=== PATIENT | female | born 1965 | race Caucasian/White ===

== ENCOUNTER 2019-03-19 09:40 | Emergency (ER) | payer MEDICAID, OTHER ==
--- NOTE | 2019-03-19 10:22 | RAD ---
EXAM: Chest PA and lateral: HISTORY: Cough COMPARISON: 08/08/2014 FINDINGS: Left-sided transvenous defibrillator with lead positioned over the right atrium, right ventricle and presumably the coronary sinus. Heart: Markedly enlarged cardiac silhouette. Aorta: Unremarkable Pulmonary vessels: Normal Costophrenic angles: Costophrenic angles are clear. Lungs: No consolidation or masses. Chronic interstitial opacities. Pneumothorax: No pneumothorax Osseous structures: No osseous abnormalities IMPRESSION: Markedly cardiomegaly. No evidence of congestive heart failure.
[2019-03-19] MEDS ORDERED: Dexamethasone 10 MG/ML VIAL ONE (10:45)
== END 2019-03-19 11:17 | disposition home or self-care (01) ==
LOC: ERS 09:40
DX: J06.9 Acute upper respiratory infection, unspecified (principal); I50.9 Heart failure, unspecified; F17.210 Nicotine dependence, cigarettes, uncomplicated
CPT/HCPCS: 71046; 94640; J1100

== ENCOUNTER 2019-07-14 00:47 | Observation (INO) | payer OTHER ==
[2019-07-14 03:03] LABS: Hemoglobin 15.3 g/dL (12.0-16.0); Mean Corpuscular HGB CONC 33.7 g/dL (32.0-36.0); Mean Corpuscular Hemoglobin 31.8 pg (27.0-31.0); Mean Corpuscular Volume 94.3 fL (78.0-98.0); RBC Distribution Width 14.3 % (11.5-14.5)
[2019-07-14 03:18] LABS: #Basophils 0.1 thou/uL (0.0-0.2); #Eosinphils 0.1 thou/uL (0.0-0.7); #Lymphocytes 1.7 thou/uL (1.20-3.40); #Monocytes 0.7 thou/uL (0.11-0.59); #Neutrophils 7.4 thou/uL (1.40-6.50); %Basophils 0.5 % (0.0-1.0); %Lymphocytes 17.2 % (21.0-51.0); %Monocytes 7.2 % (0.0-10.0); %Neutrophils 74.1 % (42.0-75.0); Mean Platelet Volume 8.2 fL (7.4-10.4); Platelet Count 112 thou/uL (130-400); Platelet Morphology Comment Appears Decreased
[2019-07-14 03:19] LABS: ALT (SGPT) 41 U/L (8-55); AST (SGOT) 30 U/L (5-34); Albumin 3.7 g/dL (3.5-5.0); Alkaline Phosphatase 117 U/L (40-110); Anion Gap 16 mmol/L (10-20); BUN (Urea Nitrogen) 30 mg/dL (9.8-20.1); Bilirubin, Total 2.6 mg/dL (0.2-1.2); CK (CPK) 72 U/L (29-168); Calc. Creatinine Clearance 0 mL/min (70-130); Calcium 9.2 mg/dL (7.8-10.44); Carbon Dioxide 26 mmol/L (22-29); Chloride 94 mmol/L (98-107); Estimated GFR-MDRD 62; Glucose 114 mg/dL (70-105); Potassium 3.8 mmol/L (3.5-5.1); Protein, Total 6.7 g/dL (6.0-8.3); Sodium 132 mmol/L (136-145)
[2019-07-14 04:24] LABS: CKMB 2.7 ng/mL (0-6.6)
[2019-07-14 04:32] LABS: Bilirubin Negative (Negative); Blood, Urine Negative (Negative); Clarity Clear (Clear); Glucose, Urine (Dipstick) Normal (Negative); Leukocyte Negative Leu/uL (Negative); Nitrite Negative (Negative); Protein, Urine (Dipstick) 70 mg/dL (Neg-Trace); Squamous Epithelial 0-3 HPF (0-3); Urobilinogen 6 mg/dL (Less than 2); WBC/HPF 0-3 HPF (0-3)
[2019-07-14 04:47] LABS: Bacteria/HPF 1+ HPF (None Seen); RBC/HPF 0-3 HPF (0-3)
[2019-07-14] MEDS ORDERED: Benzonatate 100 MG CAP ONE (07:01)
[2019-07-14] MEDS ORDERED: Furosemide 40 MG/4 ML VIAL ONE (07:09)
--- NOTE | 2019-07-14 08:16 | RAD ---
TWO VIEWS CHEST: COMPARISON: 03/19/2019. HISTORY: Dry cough for 2 weeks. FINDINGS: Two views of the chest show an enlarged but stable cardiomediastinal silhouette. There is a pacemake r that is unchanged in position. There is no evidence of consolidation, mass, or pleural effusion. IMPRESSION: Cardiomegaly without evidence of acute cardiopulmonary disease. POS: [facility]
[2019-07-14] MEDS ORDERED: Ondansetron PF 4 MG/2 ML Vial IVP PRN (08:24)
[2019-07-14] MEDS ORDERED: Acetaminophen 325 MG TAB PO PRN (08:24)
[2019-07-14] MEDS ORDERED: Acetaminophen 650 MG Suppository PR PRN (08:24)
[2019-07-14] MEDS ORDERED: Albuterol Sulfate 2.5 mg/3 ml Neb NEB PRN (08:24)
[2019-07-14] MEDS ORDERED: Ondansetron ODT 4 MG TAB PO PRN (08:24)
--- NOTE | 2019-07-14 08:37 | PDOC.FPRHP ---
- History of Present Illness Chief Complaint: coughx2 weeks History of Present Illness: Ms. Watters is a 54 yo F with a pmhx sig for dilated cardiomyopathy resulting in HFrEF and COPD she has been having a cough, decreased appetite, and weight loss for the past two-three weeks. she has been taking her medications as prescribed and denies any current drug use. she reports difficulty lying flat 2/2 cough. she denies any LE edema, dyspnea, chest pain, syncope, or defib discharges. she continues to smoke and take her inhalers as prescribed. she denies any fever, chills, night sweats, wheezing, or increased mucous production. she was last seen/ received an echo/LHC in our hospital in 2014 that revealed an EF of 10-15% and no sig coronary blockage. she has been following with a potash flaker at [facility] and thinks her last echo was over a year ago, unable to remember cardiologists name or many other details ED Course: benji horn - Allergies/Adverse Reactions Allergies Allergy/AdvReac Type Severity Reaction Status Date / Time No Known Allergies Allergy Verified 08/08/14 23:20 - Home Medications Medication Instructions Recorded Confirmed Type ALButerol Sulfate [Ventolin Neb] 07/14/19 History Albuterol Sulfate [Proair HFA] 07/14/19 History BuPROPion SR [Wellbutrin SR] 150 mg PO DAILY 07/14/19 History Budesonide-Formoterol [Symbicort 1 puff INH BID 07/14/19 History 160-4.5] Carvedilol mg PO BID 07/14/19 History Digoxin [Lanoxin] mg PO DAILY 07/14/19 History Lisinopril mg PO DAILY 07/14/19 History Metolazone [Zaroxolyn] mg PO DAILY 07/14/19 History Sertraline HCl mg PO DAILY 07/14/19 History - History PMHx:COPD, HFrEF PSHx: CS, AICD placement FHx:NC Social:reports 1/2 day, hx of polysubstance abuse - Review of Systems General: reports: weight/appetite/sleep changes. denies: fever/chills Eyes: denies: vision changes Respiratory: reports: cough, shortness of breath. denies: congestion Cardiovascular: denies: chest pain, palpitation, edema Gastrointestinal: denies: nausea, vomiting, diarrhea Genitourinary: denies: dysuria Skin: denies: rashes, lesions Musculoskeletal: denies: pain, tenderness Neurological: denies: numbness, syncope, seizure - Vital signs 112/74, Pulse: 112, Resp: 20, Temp: 98.0 (Oral), Pain: 7, O2 sat: 98 on (Room Air - Physical Exam Constitutional: NAD, awake, alert and oriented HEENT: normocephalic and atraumatic Neck: trachea midline, no JVD Chest: no-tender to palpation Heart: RRR, no murmurs/rubs/gallops, pulses present Lungs: no respiratory distress, no rales/rhonchi, no wheezing -Lungs: decreased bs b/l Abdomen: soft, no masses/distention Musculoskeletal: normal structure, normal tone Neurological: no focal deficit, CN II-XII intact Skin: no rash/lesions Heme/Lymphatic: no unusual bruising or bleeding FMR H&P: Results - Labs Result Diagrams: 07/14/19 02:53 07/14/19 02:53 Lab results: WBC 10.0 thou/uL (4.8-10.8) 07/14/19 02:53 Hgb 15.3 g/dL (12.0-16.0) 07/14/19 02:53 Hct 45.2 % (36.0-47.0) 07/14/19 02:53 MCV 94.3 fL (78.0-98.0) 07/14/19 02:53 Plt Count 112 thou/uL (130-400) L 07/14/19 02:53 Neutrophils % 74.1 % (42.0-75.0) 07/14/19 02:53 Sodium 132 mmol/L (136-145) L 07/14/19 02:53 Potassium 3.8 mmol/L (3.5-5.1) 07/14/19 02:53 Chloride 94 mmol/L (98-107) L 07/14/19 02:53 Carbon Dioxide 26 mmol/L (22-29) 07/14/19 02:53 BUN 30 mg/dL (9.8-20.1) H 07/14/19 02:53 Creatinine 0.94 mg/dL (0.6-1.1) 07/14/19 02:53 Glucose 114 mg/dL (70-105) H 07/14/19 02:53 Calcium 9.2 mg/dL (7.8-10.44) 07/14/19 02:53 Total Bilirubin 2.6 mg/dL (0.2-1.2) H 07/14/19 02:53 AST 30 U/L (5-34) 07/14/19 02:53 ALT 41 U/L (8-55) 07/14/19 02:53 Alkaline Phosphatase 117 U/L (40-110) H 07/14/19 02:53 Creatine Kinase 72 U/L (29-168) 07/14/19 02:53 CK-MB (CK-2) 2.7 ng/mL (0-6.6) 07/14/19 02:53 B-Natriuretic Peptide 3927.3 pg/mL (0-100) H 07/14/19 02:53 Serum Total Protein 6.7 g/dL (6.0-8.3) 07/14/19 02:53 Albumin 3.7 g/dL (3.5-5.0) 07/14/19 02:53 Urine Ketones Negative mg/dL (Negative) 07/14/19 04:15 Urine Blood Negative (Negative) 07/14/19 04:15 Urine Nitrite Negative (Negative) 07/14/19 04:15 Ur Leukocyte Esterase Negative Adamaris/uL (Negative) 07/14/19 04:15 Urine RBC 0-3 HPF (0-3) 07/14/19 04:15 Urine WBC 0-3 HPF (0-3) 07/14/19 04:15 Ur Squamous Epith Cells 0-3 HPF (0-3) 07/14/19 04:15 Urine Bacteria 1+ HPF (None Seen) A 07/14/19 04:15 FMR H&P: A/P - Problem List (1) HFrEF (heart failure with reduced ejection fraction) Current Visit: Yes Status: Acute Code(s): I50.20 - UNSPECIFIED SYSTOLIC ( CONGESTIVE) HEART FAILURE (2) COPD exacerbation Current Visit: Yes Status: Acute Code(s): J44.1 - CHRONIC OBSTRUCTIVE PULMONARY DISEASE W (ACUTE) EXACERBATION (3) NSTEMI (non-ST elevated myocardial infarction) Current Visit: Yes Status: Acute Code(s): I21.4 - NON-ST ELEVATION (NSTEMI) MYOCARDIAL INFARCTION (4) Hyperbilirubinemia Current Visit: Yes Status: Acute Code(s): E80.6 - OTHER DISORDERS OF BILIRUBIN METABOLISM (5) Tobacco abuse Current Visit: Yes Status: Acute Code(s): Z72.0 - TOBACCO USE (6) Polysubstance abuse Current Visit: Yes Status: Acute Code(s): F19.10 - OTHER PSYCHOACTIVE SUBSTANCE ABUSE, UNCOMPLICATED - Plan COPD exacerbation, most likely - hyperinflated lungs on cxr, cough, decreased breath sounds - prednisone, nebs - further eval for infectious cause with procal, consider TB screen - continue home meds HFrEF exacerbation, possible - elevated BNP, no fluid/vascular congestion seen on cxr, no edema - elevated bnp/trop/bili likely chronic from severe dilated cardiomyopathy - obtain echo, monitor fluid status, consider additional lasix - continue home meds NSTEMI II - elevated troponin, likely related to above - trendx3 Hyperbilirubinemia - likely related to hepatic congestion 2/2 above - monitor CMP tobacco abuse - encourage cessation polysubstance abuse - uds pending code: full dispo: tele obs for further eval/treatment FMR H&P: Upper Level - Plan Date/Time: 07/14/19 0832 I, [], have evaluated this patient and agree with findings/plan as outlined by engineer intern resident. Pertinent changes/additions are listed here. Addendum - Attending - Attending Attestation Date/Time: 07/14/19 1104 I personally evaluated the patient and discussed the management with Dr. Verduzco I agree with the History, Examination, Assessment and Plan documented above with any addition or exceptions noted below. 54 yo female with known non-ischemic cardiomyopathy HFrEF (EF 10-15 %)s/p ACID. Patient c/o 3 weeks non productive cough questionable orthopnea, she denies associated fever or chills. Patient to ER recently at [facility] records unavailable. Patient with Heart Cath Lindsay 2014 nonremarkable Coronary arteries with dilated cardiomyopathy felt due most likely to illicit drug use. Patient smoker until recent worsening symptoms. Lab notable for elevated BNP and OJ noted. PE patient mildly cachetic appears older than stated age with no avert clinical feature c/w fluid overload lung coarse BS no rales no diminished BS at bases suggestive of pleural effusion. Heart with heart rate 110s at present. Abdomen soft BS positive no guarding rebound extremities no c/c/e A/P COPD acute exacerbation r/o component of decompensation Severe non ischemic cardiomyopathy HFrEF s/p AICD r/o component of diastolic HF as well will admit withhold antibiotic for now rec steroids scheduled nebulizer treatment and trend troponins. Would recommend echocardiogram and otherwise continue home rx diuresis prn.
--- NOTE | 2019-07-14 09:04 | CT ---
PRELIMINARY REPORT/[facility]/EMERGENCY AFTER HOURS PROCEDURE: EXAM: CTA Chest with Intravenous Contrast CLINICAL HISTORY: DYSPNEA TECHNIQUE: Axial CTA images of the chest with intravenous contrast. MIP reconstructed images were created and re viewed. CONTRAST: With; ISOVUE 370,100mL COMPARISON: None provided. FINDINGS: PULMONARY ARTERIES No intraluminal filling defect suspicious for PE. AORTA No thoracic aortic aneurysm or dissection. LUNGS Diffuse emphysematous changes bilaterally. There is a 1.4 cm spiculated nodule at the medial l eft upper lobe are not seen on image 19 of series 3. Irregular pleural thickening is seen at the pos terior right lung apex. There is irregular pleural thickening of the mid/ inferior left major fissur e. Calcified granulomas within the medial left lung. PLEURAL SPACES No pleural effusion. No pneumothorax. HEART AND MEDIASTINUM Massive cardiomegaly. Small pericardial effusion. Left chest pacer with leads in place. Reflux of contrast into the IVC and hepatic veins. Mediastinal/bilateral hilar vivien kait cifications. Small amount of heterogeneous soft tissue attenuation within the anterior mediastinum r elated to residual thymus versus thymic hyperplasia. LYMPH NODES No lymphadenopathy. BONES No acute fracture. Degenerative changes of the thoracic spine. CHEST WALL AND UPPER ABDOMEN Images through the upper abdomen are unremarkable. The chest wall is unr emarkable. IMPRESSION: 1. No pulmonary embolism. 2. There is a 1.4 cm spiculated nodule at the medial left upper lobe, with irregular pleural thicken ing at the right lung apex and at the mid/inferior left major fissure. These findings are concerning for malignancy, however may alternatively be related to chronic change or infectious or inflammatory process. Recommend comparison with any prior imaging if available. Recommend Pulmonology consult. 3. Massive cardiomegaly with small pericardial effusion. Reflux of contrast into the IVC and hepati c veins may be related to right heart dysfunction. ELECTRONICALLY SIGNED BY: Luciano Mckeon MD Jul 14, 2019 5:59:50 AM SHEET WRITER This report is intended for review by the ordering physician only, in accordance of law. If you recei ve this report in error, please call [facility] at [phone]. FINAL REPORT EMERGENT AFTER HOURS CTA OF THE CHEST WITH CONTRAST: FINDINGS/IMPRESSION: I agree with the findings and impression given in the preliminary report per [facility] physici an. 1. No evidence of pulmonary thromboembolism. 2. Cardiomegaly with severe enlargement of the left lateral ventricle. Contrast is still seen in th e right heart extending down the inferior vena cava suggesting right heart dysfunction. POS: [facility]
[2019-07-14] MEDS ORDERED: guaiFENesin 100 MG/5 ML UDCUP PO PRN (09:45)
[2019-07-14 10:11] LABS: Amphetamine Not Detected (NotDetected); Cocaine Metabolite Screen Not Detected (NotDetected); Medtox Reader # READER 1; Methamphetamine Detected (NotDetected); Opiate Screen Not Detected (NotDetected); Phencyclidine (PCP) Not Detected (NotDetected); THC/Cannabinoid Screen Detected (NotDetected)
[2019-07-14 10:12] LABS: Barbiturates Screen Not Detected (NotDetected); Benzodiazepine Screen Detected (NotDetected); Medtox Control Line Valid? VALID (VALID); Methadone Not Detected (NotDetected); Oxycodone Screen Not Detected (NotDetected); Tricyclic Screen Not Detected (NotDetected)
[2019-07-14 11:22] LABS: Troponin I 0.046 ng/mL (< 0.028)
[2019-07-14] MEDS: predniSONE 20 MG TAB PO SCH (12:45)
[2019-07-14] MEDS: Diabetic Tussin 200 MG/10 ML UDCUP PO PRN ×2 (12:45→20:52)
[2019-07-14] MEDS ORDERED: Iopamidol 370 76% 100 ML VIAL ONE (13:47)
[2019-07-15] MEDS: Diabetic Tussin 200 MG/10 ML UDCUP PO PRN (00:59)
[2019-07-15 05:12] LABS: ALT (SGPT) 36 U/L (8-55); AST (SGOT) 25 U/L (5-34); Albumin 3.5 g/dL (3.5-5.0); Alkaline Phosphatase 125 U/L (40-110); Anion Gap 16 mmol/L (10-20); BUN (Urea Nitrogen) 33 mg/dL (9.8-20.1); Bilirubin, Total 1.6 mg/dL (0.2-1.2); Calc. Creatinine Clearance 67 mL/min (70-130); Calcium 9.2 mg/dL (7.8-10.44); Carbon Dioxide 27 mmol/L (22-29); Chloride 93 mmol/L (98-107); Estimated GFR-MDRD 65; Globulin 2.9 g/dL (2.4-3.5); Glucose 166 mg/dL (70-105); Magnesium 1.8 mg/dL (1.6-2.6); Potassium 3.4 mmol/L (3.5-5.1); Protein, Total 6.4 g/dL (6.0-8.3); Sodium 133 mmol/L (136-145)
[2019-07-15 06:37] LABS: Band 8 % (5-11); Hemoglobin 14.5 g/dL (12.0-16.0); Lymphocytes 8 % (21-51); MDiff Complete? YES; Mean Platelet Volume 9.1 fL (7.4-10.4); Monocytes 3 % (0-10); Neutrophil 81 % (42-75); Platelet Count 125 thou/uL (130-400); RBC Distribution Width 14.3 % (11.5-14.5); Red Blood Cell (RBC) Count 4.67 mill/uL (4.20-5.40); White Blood Cell (WBC) Count 8.6 thou/uL (4.8-10.8)
--- NOTE | 2019-07-15 07:09 | PDOC.FM ---
- Subjective Subjective: pt reports feeling much better today, still has cough, but denies dyspnea or chest pain - Objective Vital Signs & Weight: Vital Signs (12 hours) Temp Pulse Resp BP Pulse Ox 07/15/19 03:01 98.3 F 103 H 18 105/68 95 07/14/19 23:20 95 16 96 07/14/19 23:15 97.4 F L 106 H 18 126/82 92 L 07/14/19 20:00 97.4 F L 94 14 109/75 93 L 07/14/19 19:26 90 16 97 Weight Weight 58.377 kg I&O: 07/14/19 07/15/19 07/16/19 06:59 06:59 06:59 Intake Total 804 Output Total 1300 Balance -496 Result Diagrams: 07/15/19 04:35 07/15/19 04:35 Phys Exam - Physical Examination Constitutional: NAD HEENT: moist MMs Neck: no JVD Respiratory: clear to auscultation bilateral Cardiovascular: RRR, no significant murmur Gastrointestinal: soft Musculoskeletal: pulses present Neurological: moves all 4 limbs Psychiatric: normal affect Skin: no rash Dx/Plan (1) HFrEF (heart failure with reduced ejection fraction) Code(s): I50.20 - UNSPECIFIED SYSTOLIC (CONGESTIVE) HEART FAILURE Status: Acute (2) COPD exacerbation Code(s): J44.1 - CHRONIC OBSTRUCTIVE PULMONARY DISEASE W (ACUTE) EXACERBATION Status: Acute (3) NSTEMI (non-ST elevated myocardial infarction) Code(s): I21.4 - NON-ST ELEVATION (NSTEMI) MYOCARDIAL INFARCTION Status: Acute (4) Hyperbilirubinemia Code(s): E80.6 - OTHER DISORDERS OF BILIRUBIN METABOLISM Status: Acute (5) Tobacco abuse Code(s): Z72.0 - TOBACCO USE Status: Acute (6) Polysubstance abuse Code(s): F19.10 - OTHER PSYCHOACTIVE SUBSTANCE ABUSE, UNCOMPLICATED Status: Acute - Plan Plan: COPD exacerbation, most likely - hyperinflated lungs on cxr, cough, decreased breath sounds - prednisone, nebs - continue home meds HFrEF exacerbation, possible - elevated BNP, no fluid/vascular congestion seen on cxr, no edema - elevated bnp/trop/bili likely chronic from severe dilated cardiomyopathy - echo similar to previous - continue home meds NSTEMI II - elevated troponin, likely related to above - downtrended Hyperbilirubinemia - likely related to hepatic congestion 2/2 above - monitor CMP tobacco abuse - encourage cessation polysubstance abuse - uds + code: full dispo: DC today with pulm fu outpt Addendum - Attending - Attending Attestation Date/Time: 07/15/19 6199 I personally evaluated the patient and discussed the management with Dr. Verduzco I agree with the History, Examination, Assessment and Plan documented above with any addition or exceptions noted below. Patient stable for dismissal candid discussion regards need tobacco cessation and importance of f/u pulmonary nodule /mass with Pulmonary as outpatient.
[2019-07-15] MEDS: predniSONE 20 MG TAB PO SCH (08:30)
[2019-07-15] MEDS ORDERED: Lisinopril 2.5 MG TAB PO SCH (09:00)
[2019-07-15] MEDS ORDERED: Enoxaparin Sodium 40 MG/0.4 ML SYRINGE SC SCH (09:00)
[2019-07-15] MEDS ORDERED: Digoxin 0.125 MG TAB PO SCH (09:00)
[2019-07-15] MEDS ORDERED: Carvedilol 3.125 MG TAB PO SCH (09:00)
[2019-07-15] MEDS ORDERED: Albuterol Sulfate 2.5 mg/3 ml Neb NEB PRN (10:15)
[2019-07-15] MEDS ORDERED: PROVENTIL INHALER 6.7 G (200 INHALATIONS) INH PRN (10:15)
[2019-07-15 12:02] VITALS: TEMP 97.5
[2019-07-15] MEDS ORDERED: Furosemide 20 MG TAB PO SCH (14:00)
[2019-07-15 14:08] VITALS: BP 102/63
[2019-07-15 14:16] VITALS: BMI 21.4
[2019-07-15] MEDS ORDERED: Spironolactone 25 MG TAB PO SCH (17:00)
[2019-07-15] MEDS ORDERED: Mometasone/Formoterol 120 PUFF INHALER INH SCH (18:30)
--- NOTE | 2019-07-16 11:27 | DIS ---
DATE OF ADMISSION: 07/14/2019 DATE OF DISCHARGE: 07/15/2019 ADMITTING ATTENDING: Germán Gamez MD DISCHARGE ATTENDING: Germán Gamez MD CONSULTATIONS: None. PROCEDURES: None. IMAGING: Chest x-ray reviewed. No acute abnormalities. Chest thorax CTA revealed no acute abnormalities. Echocardiogram significant for ejection fraction, visually estimated at 10% to 15%, which is unchanged from an ejection fraction 5 years ago. DISCHARGE MEDICATIONS: 1. Sertraline 50 mg p.o. daily. 2. Metolazone 2.5 mg p.o. daily. 3. Lisinopril 2.5 mg p.o. daily. 4. Digoxin 0.125 mg p.o. daily. 5. Coreg 3.125 mg p.o. b.i.d. 6. Symbicort one puff inhaled b.i.d. 7. Wellbutrin 150 mg p.o. b.i.d. 8. ProAir two puffs inhaled q.4 hours p.r.n. 9. Ventolin 1 vial nebulized q.6 hours p.r.n. 10. Spironolactone 12.5 mg p.o. b.i.d. 11. Spiriva 18 mcg inhaled daily. 12. Furosemide 20 mg p.o. at 0900 and 1400. 13. Prednisone 40 mg p.o. daily. DISCHARGE DIAGNOSES: Primary Diagnosis: Chronic obstructive pulmonary disease exacerbation. Secondary Diagnoses: 1. Heart failure with reduced ejection fraction exacerbation, mild. 2. Ugn-VF-dazscnfmr myocardial infarction type 2. 3. Hyperbilirubinemia. 4. Tobacco abuse. 5. Polysubstance abuse. HISTORY OF PRESENT ILLNESS/HOSPITAL COURSE: Ms. Watters is a 54-year-old female with past medical history significant for severely dilated cardiomyopathy resulting in heart failure and diagnosis of COPD. She reports having a cough, decreased appetite and weight loss in the past 2 to 3 weeks. Taking her meds as prescribed and not drinking any more water. She reports the cough all the time and not changing when lying flat or sitting up. She denies any chest pain, syncope, discharge from her defibrillator that time. She continues to smoke. In the emergency room, she was given Neb and Lasix and admitted to the hospital floor for exacerbation. The patient's BNP is in the 3000 which is her baseline. Chest x-ray and physical exam findings suggest a diagnosis of acute exacerbation. Echocardiogram . The patient COPD exacerbation and possibly having side effects from her drug abuse, she did test positive . The patient quickly improved and was deemed stable for discharge to home today. Of note, the patient did have a CTA done DISCHARGE INSTRUCTIONS: LOCATION: Home. DIET: Heart healthy low-sodium, fluid restriction. ACTIVITY: As tolerated. FOLLOWUP: Follow up with PCP and architectural sales consultant as soon as possible. Job ID: [id number]
== END 2019-07-15 14:30 | disposition home or self-care (01) ==
LOC: ERS 00:47 → 2SW 07:36
PROVIDERS: ADMIT Family Medicine; ATTEND Family Medicine
DX: J44.1 Chronic obstructive pulmonary disease with (acute) exacerbation (principal); I42.0 Dilated cardiomyopathy; I50.20 Unspecified systolic (congestive) heart failure; F17.210 Nicotine dependence, cigarettes, uncomplicated; E80.6 Other disorders of bilirubin metabolism; F19.10 Other psychoactive substance abuse, uncomplicated; I21.A1 Myocardial infarction type 2; R91.1 Solitary pulmonary nodule; Z79.51 Long term (current) use of inhaled steroids; Z79.899 Other long term (current) drug therapy; Z95.810 Presence of automatic (implantable) cardiac defibrillator
CPT/HCPCS: 36415; 71046; 71275; 80053; 80306; 81003; 81015; 82550; 82553; 83735; 83880; 84145; 84443; 84484; 85007; 85025; 85027; 93005; 93306; 93798; 94640; 96374; G0378; J1650; J1940; J7512; J7620; Q9967

== ENCOUNTER 2019-07-23 11:08 | Inpatient (IN) | payer OTHER ==
[2019-07-23 11:54] LABS: #Eosinphils 0.1 thou/uL (0.0-0.7); #Lymphocytes 1.5 thou/uL (1.20-3.40); #Monocytes 0.8 thou/uL (0.11-0.59); %Basophils 0.4 % (0.0-1.0); %Eosinophils 0.8 % (0.0-10.0); %Lymphocytes 14.2 % (21.0-51.0); %Monocytes 7.7 % (0.0-10.0); %Neutrophils 76.8 % (42.0-75.0); Hemoglobin 15.5 g/dL (12.0-16.0); Mean Corpuscular HGB CONC 31.4 g/dL (32.0-36.0); Mean Corpuscular Volume 95.7 fL (78.0-98.0); Mean Platelet Volume 8.7 fL (7.4-10.4); Platelet Count 173 thou/uL (130-400); RBC Distribution Width 14.6 % (11.5-14.5); Red Blood Cell (RBC) Count 5.16 mill/uL (4.20-5.40); White Blood Cell (WBC) Count 10.4 thou/uL (4.8-10.8)
--- NOTE | 2019-07-23 12:20 | RAD ---
SINGLE VIEW CHEST: Date: 07/23/2019 COMPARISON: 08/08/14. HISTORY: Shortness of breath for 2-3 days. FINDINGS: Single view of the chest shows an enlarged cardiomediastinal silhouette. There is a pacemaker with it s leads in the right atrium, right ventricle, and coronary sinus. There is no evidence of consolidati on, mass, or pleural effusion. IMPRESSION: Cardiomegaly. POS: [facility]
[2019-07-23 12:38] LABS: CKMB 4.3 ng/mL (0-6.6)
[2019-07-23 12:55] LABS: Albumin 3.7 g/dL (3.5-5.0)
[2019-07-23 12:56] LABS: Chloride 89 mmol/L (98-107); Sodium 131 mmol/L (136-145)
[2019-07-23 12:57] LABS: Calcium 9.4 mg/dL (7.8-10.44); Glucose 90 mg/dL (70-105)
[2019-07-23 12:58] LABS: Globulin 2.9 g/dL (2.4-3.5); Protein, Total 6.6 g/dL (6.0-8.3)
[2019-07-23 12:59] LABS: Anion Gap 12 mmol/L (10-20); Bilirubin, Total 1.6 mg/dL (0.2-1.2); Carbon Dioxide 34 mmol/L (22-29)
[2019-07-23 13:00] LABS: Alkaline Phosphatase 120 U/L (40-110)
[2019-07-23 13:01] LABS: Calc. Creatinine Clearance 0 mL/min (70-130); Estimated GFR-MDRD 58
[2019-07-23 13:02] LABS: BUN (Urea Nitrogen) 35 mg/dL (9.8-20.1)
[2019-07-23 13:03] LABS: ALT (SGPT) 116 U/L (8-55); AST (SGOT) 54 U/L (5-34)
[2019-07-23] MEDS ORDERED: Heparin 1,000 UNITS/ML VIAL ONE (15:37)
--- NOTE | 2019-07-23 16:30 | PDOC.FPRHP ---
- History of Present Illness Chief Complaint: Abd pain, SOB, Increasing ALMAZAN History of Present Illness: 54 yo F w/ PMH of severe HFrEF, COPD, drug abuse, HTN, HLD presents for increasing ALMAZAN, sob, abdominal pain, decreased appetite. Pt reports symptoms have been present since she was recently discahrged from hospital. Pt reports she has been taking her home inhalers without relief. She has not had any increasing edema. She reports some exertional chest discomfort that is uncahnged from baseline. Denies fever, chills. Reports abd pain with increasing nausea and epigastric pain that is worse with meals. Labwork in ED showed BNP mildly elevated from baseline and troponin leak consistent with prior values. ED Course: Albuterol X1 - Allergies/Adverse Reactions Allergies Allergy/AdvReac Type Severity Reaction Status Date / Time No Known Allergies Allergy Verified 08/08/14 23:20 - Home Medications Medication Instructions Recorded Confirmed Type ALButerol Sulfate [Ventolin Neb] 1 vial NEB Q6HR PRN 07/14/19 07/24/19 History Albuterol Sulfate [Proair HFA] 2 puff INH Q4HR PRN 07/14/19 07/24/19 History BuPROPion SR [Wellbutrin SR] 150 mg PO BID 07/14/19 07/24/19 History Budesonide-Formoterol [Symbicort 1 puff INH BID 07/14/19 07/24/19 History 160-4.5] Carvedilol 3.125 mg PO BID 07/14/19 07/24/19 History Digoxin [Lanoxin] 0.125 mg PO DAILY 07/14/19 07/24/19 History Lisinopril 2.5 mg PO DAILY 07/14/19 07/24/19 History Metolazone [Zaroxolyn] 2.5 mg PO DAILY 07/14/19 07/24/19 History Sertraline HCl 50 mg PO DAILY 07/14/19 07/24/19 History Furosemide [Lasix] 20 mg PO 0900,1400 #60 tab 07/15/19 07/24/19 Rx Spironolactone [Aldactone] 12.5 mg PO BID 07/15/19 07/24/19 History Tiotropium [place] [Spiriva] 18 mcg IH DAILY #30 cap.w.dev 07/15/19 07/24/19 Rx predniSONE 40 mg PO DAILY #6 tab 07/15/19 07/24/19 Rx - History PMHx: COPD, CHF, HTN, Substance abuse PSHx: Denies FHx:Denies Social: Denies alcohol and drug use, reports pos smoking hx 1ppd - Review of Systems General: reports: weight/appetite/sleep changes, fatigue. denies: fever/chills , night sweats Eyes: denies: vision changes ENT: denies: nasal congestion Respiratory: reports: shortness of breath, exercise intolerance. denies: cough Cardiovascular: reports: chest pain. denies: palpitation, edema, paroxysmal nocturnal dyspnea, orthopnea Gastrointestinal: reports: nausea, abdominal pain. denies: vomiting, diarrhea, constipation, GI bleeding Genitourinary: denies: dysuria Skin: denies: rashes, jaundice Musculoskeletal: denies: pain Neurological: denies: syncope, weakness Psychological: denies: anxiety - Vital signs BP: 108/79 HR: 102 RR: 20 Tmax: 98.2 Pox: 95% on ra Wt: 70 Kg - Physical Exam Constitutional: NAD, awake, alert and oriented HEENT: normocephalic and atraumatic, PERRLA, conjunctiva clear, no scleral icterus, grossly normal vision, grossly normal hearing Neck: FROM, trachea midline Chest: no-tender to palpation Heart: RRR, pulses present -Heart: Regurg murmur left base Lungs: CTAB, no respiratory distress, good air movement, no rales/rhonchi Abdomen: soft, bowel sounds present, no masses/distention -Abdomen: Guarding without rebound tenderness, TTP ruq and epigastrium Musculoskeletal: normal structure Neurological: no focal deficit Skin: no rash/lesions, good turgor, capillary refill <2 seconds Psychiatric: normal mood and affect FMR H&P: Results - Labs Result Diagrams: 07/24/19 03:31 07/24/19 03:32 Lab results: WBC 10.4 thou/uL (4.8-10.8) 07/23/19 11:40 Hgb 15.5 g/dL (12.0-16.0) 07/23/19 11:40 Hct 49.4 % (36.0-47.0) H 07/23/19 11:40 MCV 95.7 fL (78.0-98.0) 07/23/19 11:40 Plt Count 173 thou/uL (130-400) 07/23/19 11:40 Neutrophils % 76.8 % (42.0-75.0) H 07/23/19 11:40 Sodium 131 mmol/L (136-145) L 07/23/19 12:41 Potassium 4.0 mmol/L (3.5-5.1) 07/23/19 12:41 Chloride 89 mmol/L (98-107) L 07/23/19 12:41 Carbon Dioxide 34 mmol/L (22-29) H 07/23/19 12:41 BUN 35 mg/dL (9.8-20.1) H 07/23/19 12:41 Creatinine 1.00 mg/dL (0.6-1.1) 07/23/19 12:41 Glucose 90 mg/dL (70-105) 07/23/19 12:41 Calcium 9.4 mg/dL (7.8-10.44) 07/23/19 12:41 Total Bilirubin 1.6 mg/dL (0.2-1.2) H 07/23/19 12:41 AST 54 U/L (5-34) H 07/23/19 12:41 ALT 116 U/L (8-55) H 07/23/19 12:41 Alkaline Phosphatase 120 U/L (40-110) H 07/23/19 12:41 CK-MB (CK-2) 4.3 ng/mL (0-6.6) 07/23/19 11:40 B-Natriuretic Peptide 4055.1 pg/mL (0-100) H 07/23/19 11:41 Serum Total Protein 6.6 g/dL (6.0-8.3) 07/23/19 12:41 Albumin 3.7 g/dL (3.5-5.0) 07/23/19 12:41 FMR H&P: A/P - Problem List (1) Transaminitis Current Visit: Yes Status: Acute Code(s): R74.0 - NONSPEC ELEV OF LEVELS OF TRANSAMNS & LACTIC ACID DEHYDRGNSE (2) COPD exacerbation Current Visit: No Status: Acute Code(s): J44.1 - CHRONIC OBSTRUCTIVE PULMONARY DISEASE W (ACUTE) EXACERBATION (3) HFrEF (heart failure with reduced ejection fraction) Current Visit: No Status: Chronic Code(s): I50.20 - UNSPECIFIED SYSTOLIC ( CONGESTIVE) HEART FAILURE (4) Hyperbilirubinemia Current Visit: No Status: Acute Code(s): E80.6 - OTHER DISORDERS OF BILIRUBIN METABOLISM (5) Polysubstance abuse Current Visit: No Status: Chronic Code(s): F19.10 - OTHER PSYCHOACTIVE SUBSTANCE ABUSE, UNCOMPLICATED - Plan 1) Transaminitis in context of RUQ pain - new onset - ruq us pending - cholecystitis vs congestive hepatopathy - trend daily - repeat am cbc - currently afebrile with normal white count although elevated neutrophils, possibly related to steroid use recently - consider hep panel pending US results 2) CHF: Euvolemic and does not appear in acute exacerbation - no jvd or HJR on exam - monitor IsOs - daily weights - labs show contraction alkalosis and elevated BUN/Cr, pre-renal 3) Hyponatremia - serum osmoles pending - appears euvolemic - salt restricted diet, possibly true salt deficiency - trend 3) Elevated troponin: - at baseline chronic leak from profound HFrEF - trend 4) Elevated BNP, near baseline - echo last week showed no change 5) Substance abuse - UDS pending 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 Prn nebs and monitor Is Os. RUQ us for abd pain and transaminitis. PCP: None CC PPX: Lovenix, Pepcid Code Status: Full FMR H&P: Upper Level - Plan Date/Time: 07/23/19 1630 I, [], have evaluated this patient and agree with findings/plan as outlined by rn internal medicine resident. Pertinent changes/additions are listed here. Addendum - Attending - Attending Attestation Date/Time: 07/23/191938 I personally evaluated the patient and discussed the management with Dr. Berrios I agree with the History, Examination, Assessment and Plan documented above with any addition or exceptions noted below. 54 yo female with HFrEF presents for evaluation of SOB and abdominal pain. Patient reports continuing to feel bad since last admission. Patient report upright orthopnea over the past few days. Decreased appetite with epigastric pain afterwards. Due to symptoms patient with acute on chronic HF exacerbation. No significant signs of overload other than faint crackles on exam. Patient not really monitoring diet due to poor appetite. So patient unsure of sodium content and fluid balance. Reports taking fluid pill as indicated. Will give IV lasix. Place on restriction. Currently eating bag of chips in ER with 4 cups of fluid at bedside along with box meal. BNP above baseline. LVEF done this month. Noted to be 10 to 15%. Will consult cards. Likely needs ionotrop. Trop at baseline. Patient with fpc hx of transaminitis. Hep C negative 2014. Need to follow up if done recently. Hx of thickened gallbladder in 2015 with AST/ALTs in 1000s. Repeat US. Consider HIDA. Consult gen surg. Will be high risk surg due to cardiac condition. Monitor other co-morbid conditions. Adjust meds as needed. Seymour
[2019-07-23] MEDS ORDERED: Furosemide 40 MG/4 ML VIAL SLOW IVP SCH (22:45)
[2019-07-23] MEDS ORDERED: Furosemide 40 MG/4 ML VIAL ONE (23:31)
[2019-07-24] MEDS ORDERED: Albuterol Sulfate 2.5 mg/3 ml Neb NEB PRN (02:26)
[2019-07-24] MEDS ORDERED: Ondansetron PF 4 MG/2 ML Vial IVP PRN (02:26)
[2019-07-24] MEDS ORDERED: Famotidine 20 MG TAB PO SCH (02:45)
[2019-07-24] MEDS ORDERED: Famotidine 20 MG TAB ONE (03:19)
[2019-07-24 03:41] LABS: #Eosinphils 0.1 thou/uL (0.0-0.7); #Lymphocytes 1.3 thou/uL (1.20-3.40); #Monocytes 0.6 thou/uL (0.11-0.59); #Neutrophils 6.4 thou/uL (1.40-6.50); %Eosinophils 0.8 % (0.0-10.0); %Monocytes 7.5 % (0.0-10.0); %Neutrophils 76.6 % (42.0-75.0); Mean Platelet Volume 7.9 fL (7.4-10.4); Platelet Count 141 thou/uL (130-400); RBC Distribution Width 14.3 % (11.5-14.5); Red Blood Cell (RBC) Count 4.85 mill/uL (4.20-5.40); White Blood Cell (WBC) Count 8.3 thou/uL (4.8-10.8)
[2019-07-24 04:04] LABS: ALT (SGPT) 94 U/L (8-55); AST (SGOT) 42 U/L (5-34); Albumin 3.4 g/dL (3.5-5.0); Alkaline Phosphatase 115 U/L (40-110); Anion Gap 15 mmol/L (10-20); BUN (Urea Nitrogen) 28 mg/dL (9.8-20.1); Bilirubin, Total 1.7 mg/dL (0.2-1.2); Calc. Creatinine Clearance 0 mL/min (70-130); Carbon Dioxide 32 mmol/L (22-29); Chloride 88 mmol/L (98-107); Estimated GFR-MDRD 74; Globulin 2.7 g/dL (2.4-3.5); Glucose 132 mg/dL (70-105); Protein, Total 6.1 g/dL (6.0-8.3); Sodium 132 mmol/L (136-145)
[2019-07-24 04:09] LABS: Potassium 2.9 mmol/L (3.5-5.1)
[2019-07-24] MEDS ORDERED: Potassium Chloride 20 MEQ TAB ONE (04:17)
[2019-07-24] MEDS: Potassium Chloride 20 MEQ TAB PO SCH ×2 (05:06→09:23)
--- NOTE | 2019-07-24 05:33 | PDOC.FM ---
- Subjective Subjective: Patient reports of continued abdominal pain. Reports that her pain has been chronic for the last few weeks, does not change with activity/eating. She also reports her SOB has only somewhat improved. - Objective Result Diagrams: 07/24/19 03:31 07/24/19 03:32 Phys Exam - Physical Examination Constitutional: NAD HEENT: moist MMs, sclera anicteric Neck: supple, full ROM slight crackles BLL, wheezing OZZIE Cardiovascular: RRR, no significant murmur Gastrointestinal: soft ttp mid-epigastrum, no rebound tenderness Musculoskeletal: no edema, pulses present Neurological: non-focal, moves all 4 limbs Psychiatric: normal affect, A&O x 3 Skin: no rash, normal turgor Dx/Plan (1) Transaminitis Code(s): R74.0 - NONSPEC ELEV OF LEVELS OF TRANSAMNS & LACTIC ACID DEHYDRGNSE Status: Acute (2) HFrEF (heart failure with reduced ejection fraction) Code(s): I50.20 - UNSPECIFIED SYSTOLIC (CONGESTIVE) HEART FAILURE Status: Chronic (3) Polysubstance abuse Code(s): F19.10 - OTHER PSYCHOACTIVE SUBSTANCE ABUSE, UNCOMPLICATED Status: Chronic (4) Hyponatremia Code(s): E87.1 - HYPO-OSMOLALITY AND HYPONATREMIA Status: Acute (5) Elevated troponin Code(s): R79.89 - OTHER SPECIFIED ABNORMAL FINDINGS OF BLOOD CHEMISTRY Status : Acute (6) Hypokalemia Code(s): E87.6 - HYPOKALEMIA Status: Acute (7) Abdominal pain Code(s): R10.9 - UNSPECIFIED ABDOMINAL PAIN Status: Acute - Plan Plan: Patient is a 54F with PMHx of HFrEF, COPD admitted for: #Transaminitis in context of RUQ pain - new onset - RUQ US: gallbladder wall thickening, pericholecystic fluid, + collazo sign; no evidence of gallstones; suggests HIDA scan to look for acalculous cholecystitis - continues to be afebrile; WBC wnl @ 8.3, neutrophils continue to be elevated - hep panel/hiv/rpr neg, hep c pending #CHF: Euvolemic and does not appear in acute exacerbation - no jvd or HJR on exam - slight crackles BLL - monitor I/Os - daily weights - labs show elevated bicarb, elevated BUN/Cr, pre-renal > contraction alkalosis #Hyponatremia - improved slightly 131>132 - serum osmoles wnl, 280 - euvolemic on exam - salt restricted HH diet #Elevated troponin: - at baseline - chronic leak from profound HFrEF #Elevated BNP, near baseline - echo last week showed no change - received 1 dose 40mg IV lasix overnight - strict I/O #Substance abuse - UDS pending PPX: Lovenox, Pepcid Diet: Dispo: Prn nebs and monitor I/O. HIDA scan for possible acalculous cholecystitis ; Hep C and UDS pending Code: Full Addendum - Attending - Attending Attestation Date/Time: 07/24/19 6920 I personally evaluated the patient and discussed the management with Dr. Snyder I agree with the History, Examination, Assessment and Plan documented above with any addition or exceptions noted below. HIDA scan with poorly functioning GB EF 9% patient relates symptoms c/w biliary colick last several weeks. Previous elevated transaminases attributed to passive congestion. Patient counseled regard positive drug screen she denies usage for last 5 years she affirms positive marijuana smoking and counseled to risk laced illicit drugs as UDS positive methamphetamines. Will consult GI for any further recommendations regard potential operative intervention.
[2019-07-24 06:16] LABS: Syphilis Antibody Nonreactive (Nonreactive); Syphilis Antibody Index 0.03 S/CO (<1.00 Non-Reactive)
[2019-07-24 06:19] LABS: HBCM Index 0.14 S/CO (0-0.79); HBSAB Concentration 0.67 mIU/mL; HBSAg Index 0.16 S/CO (0-0.99); HIV (1/2) Antibody/Antigen Non-Reactive (NonReactive); HIV 1/2 INDEX 0.14 S/CO (<1.00); Hep A IgM AB Non-Reactive (NonReactive); Hep A IgM S/CO 0.22 S/CO (0-0.79); Hep B Surf AB Non-Reactive (NonReactive); Hep B Surf Ag Non-Reactive S/CO (NonReactive); Hepatitis B Core IgM Abs Non-Reactive (NonReactive)
--- NOTE | 2019-07-24 07:43 | ULT ---
EXAM: Right upper quadrant ultrasound PROVIDED CLINICAL HISTORY: None COMPARISON: Right upper quadrant pain FINDINGS: Visualized portions of the pancreas appear normal. Liver demonstrates no mass or intrahepatic biliary ductal dilatation. Common duct is nondilated. Gallbladder demonstrates no stones. The gallbladder wall appears mildly th ickened, measuring about 4 mm. There is a small amount of pericholecystic fluid. The gambling monitor reports a positive sonographic Taylor sign. Right kidney demonstrates no hydronephrosis or mass. IMPRESSION: Gallbladder wall thickening, pericholecystic fluid and positive sonographic Taylor sign without evide nce for gallstones. If there is concern for acute acalculous cholecystitis, consider HIDA scan.
[2019-07-24 07:54] VITALS: BMI 21.7
[2019-07-24] MEDS ORDERED: Lisinopril 2.5 MG TAB PO SCH (09:00)
[2019-07-24] MEDS: Famotidine 20 MG TAB PO SCH ×2 (09:23→20:28)
[2019-07-24] MEDS: Enoxaparin Sodium 40 MG/0.4 ML SYRINGE SC SCH (09:24)
[2019-07-24] MEDS ORDERED: Digoxin 0.125 MG TAB PO SCH (11:00)
[2019-07-24] MEDS ORDERED: Carvedilol 3.125 MG TAB PO SCH (11:00)
[2019-07-24] MEDS ORDERED: Bupropion 150 MG SR TAB PO SCH (11:00)
[2019-07-24] MEDS ORDERED: Spironolactone 25 MG TAB PO SCH (11:15)
[2019-07-24] MEDS ORDERED: Metolazone 2.5 MG TAB PO SCH (11:15)
[2019-07-24] MEDS ORDERED: Furosemide 20 MG TAB PO SCH (11:15)
[2019-07-24] MEDS: Ipratropium Bromide 2.5 ml Neb NEB SCH ×2 (14:50→18:54)
[2019-07-24] MEDS: Furosemide 20 MG TAB PO SCH (14:54)
--- NOTE | 2019-07-24 15:16 | NM ---
EXAM: NM Hida Scan W Drug PROVIDED CLINICAL HISTORY: Transaminitis. Right upper quadrant and epigastric abdominal pain. Ultrasound examination suggested a calculus cholecystitis. COMPARISON: Right upper quadrant ultrasound 07/24/2019. FINDINGS: There is normal uptake and excretion of radiotracer by the liver. Gallbladder activity is faintly vis ualized by 9 minutes with increasing activity in the gallbladder imaging up to 60 minutes. No bowel activity is appreciated, and the common duct is not visualized. After 60 minutes of imaging, 1.18 mcg of CCK analog was administered intravenously. A gallbladder ejection fraction of 9% was obtained which is decreased. A gallbladder ejection fraction less than 33% is abnormal. IMPRESSION: 1. A decreased gallbladder ejection fraction suggests biliary dyskinesis. The common duct is also not visualized throughout the exam. Nonvisualization of the common duct can be seen with common duct obstruction, but the common duct was normal in caliber on recent gallbladder ultrasound exam. Nonvisu alization of the common duct can also be seen after narcotic administration prior to hepatobiliary imaging. However, the common duct would usually be visualized to the level of the ampulla. Exact etio logy for nonvisualization of the common duct on this exam is uncertain given findings of a normal caliber common duct on recent ultrasound. CT scan may be beneficial for further evaluation.
[2019-07-24] MEDS: Acetaminophen 325 MG TAB PO PRN (18:20)
--- NOTE | 2019-07-24 18:40 | CON ---
DATE OF CONSULTATION: 07/24/2019 CHIEF COMPLAINT: Abdominal pain. HISTORY OF PRESENT ILLNESS: Ms. Watters is a 54-year-old woman with severe cardiomyopathy, who complains of aching epigastric abdominal pain, this has been going on for a couple of weeks. The pain does come and go and comes on pretty much immediately upon eating. She is nauseated as well after eating and the pain lasts for minutes to hours. She has had no diarrhea, constipation, or blood in the stool. Her weight has been stable. She has severe cardiomyopathy with a left ventricular ejection fraction of 10% to 15%. [id number] tricuspid regurgitation was also present and moderate mitral regurgitation was present. She reports shortness of breath just with walking across the room. She has polysubstance abuse and urine tox screen from a week and half ago was positive for methamphetamines and cannabinoids. This has been on multiple occasions in the past. She was readmitted to the hospital yesterday with the abdominal pain. She had an ultrasound performed, which showed a nondilated common bile duct. The gallbladder wall was mildly thickened at only 4 mm and there was a small amount of pericholecystic fluid. There were no gallstones present. She had a HIDA scan performed, which showed a 9% gallbladder ejection fraction. The bile duct was not visualized, however, again was not dilated either. PAST MEDICAL HISTORY: Severe cardiomyopathy, COPD, hypertension, and polysubstance abuse. PAST SURGICAL HISTORY: and defibrillator placement. FAMILY HISTORY: Negative for GI malignancy. SOCIAL HISTORY: She smokes half a pack a day. No alcohol. Denies recent methamphetamines, however urine tox screen is positive. She does admit to smoking marijuana intermittently. She states that she is trying to reduce her tobacco use. ALLERGIES: NO KNOWN DRUG ALLERGIES. MEDICATIONS: Prior to admission: 1. Prednisone. 2. Spiriva. 3. Spironolactone. 4. Sertraline. 5. Metolazone. 6. Lisinopril. 7. Furosemide. 8. Digoxin. 9. Carvedilol. 10. Budesonide inhaler. 11. Albuterol inhaler. 12. Wellbutrin. REVIEW OF SYSTEMS: Negative x10 systems reviewed, except as stated in history of present illness. PHYSICAL EXAMINATION: VITAL SIGNS: Temperature is 97.6, pulse 85, and blood pressure 113/81. GENERAL: She is in no acute distress. Alert and oriented x3. HEENT: Eyes have no scleral icterus. Oropharynx is clear without lesions. LYMPHATICS: No cervical or supraclavicular lymphadenopathy. LUNGS: Clear to auscultation bilaterally. HEART: Regular rate and rhythm without murmur. ABDOMEN: Soft. She is tender to palpation in the epigastric region. Also tender in the right upper quadrant, but more so in the epigastric area. Some tenderness in the lower abdomen, but not as persistent. EXTREMITIES: No lower extremity edema. LABORATORY DATA: White blood cell count 8.3, hemoglobin 15.0, platelets 141. Sodium 132, potassium 2.9, chloride 88, CO2 of 32, BUN 28, creatinine 0.8. Bilirubin 1.7, AST 42, ALT 94, alkaline phosphatase 115. BNP 4000, albumin 3.4, and lipase 20. Viral hepatitis screen was negative. IMPRESSION: 1. Congestive hepatopathy. She has severe cardiomyopathy. She has severe tricuspid regurgitation as well. She has mild mixed hepatocellular and cholestatic pattern to her LFTs. 2. Epigastric abdominal pain. This could be due to gallbladder dyskinesia or cholecystitis or peptic ulcer versus other etiology. She does have a very slightly thickened gallbladder with a small amount of pericholecystic fluid, which could just be from the hepatic congestion. She has no stones in the gallbladder. The ejection fraction of the gallbladder is decreased by HIDA scan, however this is nonspecific. She has no biliary duct dilation to indicate choledocholithiasis. There is no indication for ERCP. She is high risk for any kind of surgery given her severe cardiomyopathy. If she developed a more convincing cholecystitis, then a cholecystostomy might be more appropriate; however, surgical consultation would need to be obtained in the future if this situation develops. For now, I would treat empirically with proton pump inhibitor and check an H pylori stool antigen and we can monitor her liver tests for now. 3. Severe cardiomyopathy. 4. Polysubstance abuse. RECOMMENDATIONS: 1. Proton pump inhibitor. 2. Follow the trend of her liver tests. 3. If she develops fever or elevated white blood cell count with worsening pain or signs of acute cholecystitis, then repeat imaging of the gallbladder and cholecystostomy could be considered. In that case, I would also request surgical opinion at that point. Job ID: [id number]
[2019-07-24] MEDS: Bupropion 150 MG SR TAB PO SCH (20:25)
[2019-07-24] MEDS: Spironolactone 25 MG TAB PO SCH (20:26)
[2019-07-24] MEDS: Carvedilol 3.125 MG TAB PO SCH (20:26)
[2019-07-25 00:23] LABS: Amphetamine Not Detected (NotDetected); Barbiturates Screen Not Detected (NotDetected); Benzodiazepine Screen Detected (NotDetected); Cocaine Metabolite Screen Not Detected (NotDetected); Medtox Control Line Valid? VALID (VALID); Medtox Reader # READER 4; Methadone Not Detected (NotDetected); Methamphetamine Not Detected (NotDetected); Opiate Screen Not Detected (NotDetected); Oxycodone Screen Not Detected (NotDetected); Phencyclidine (PCP) Not Detected (NotDetected); THC/Cannabinoid Screen Detected (NotDetected); Tricyclic Screen Not Detected (NotDetected)
[2019-07-25] MEDS: Ipratropium Bromide 2.5 ml Neb NEB SCH ×4 (00:27→18:36)
[2019-07-25 05:01] LABS: #Eosinphils 0.1 thou/uL (0.0-0.7); #Lymphocytes 1.6 thou/uL (1.20-3.40); #Monocytes 0.5 thou/uL (0.11-0.59); #Neutrophils 3.9 thou/uL (1.40-6.50); %Basophils 0.7 % (0.0-1.0); %Eosinophils 1.7 % (0.0-10.0); %Lymphocytes 25.8 % (21.0-51.0); %Monocytes 7.4 % (0.0-10.0); %Neutrophils 64.5 % (42.0-75.0); Hemoglobin 14.9 g/dL (12.0-16.0); Mean Corpuscular Hemoglobin 31.3 pg (27.0-31.0); Mean Platelet Volume 8.3 fL (7.4-10.4); Platelet Count 141 thou/uL (130-400); RBC Distribution Width 14.3 % (11.5-14.5); Red Blood Cell (RBC) Count 4.77 mill/uL (4.20-5.40); White Blood Cell (WBC) Count 6.1 thou/uL (4.8-10.8)
--- NOTE | 2019-07-25 05:46 | PDOC.FM ---
- Subjective Subjective: Patient continues to complain of abdominal pain. Discussed GI recommendations. Patient states she does not want to continue to add medications to her regimen for her to feel better. Discussed the risks of surgery at this time, and that we are not entirely certain that her gallbladder is the cause of her pain. Patient stated understanding. - Objective Vital Signs & Weight: Vital Signs (12 hours) Temp Pulse Resp BP Pulse Ox 07/25/19 04:15 97.6 F 88 20 104/71 96 07/25/19 00:27 85 16 97 07/24/19 23:31 97.6 F 89 20 102/81 100 07/24/19 19:35 97.0 F L 88 16 91/75 98 07/24/19 19:20 98 07/24/19 18:54 84 16 98 Weight Weight 58.876 kg I&O: 07/23/19 07/24/19 07/25/19 06:59 06:59 06:59 Intake Total 120 Output Total 300 Balance -180 Result Diagrams: 07/25/19 04:46 07/25/19 12:31 Phys Exam - Physical Examination Constitutional: NAD HEENT: moist MMs, sclera anicteric Neck: supple, full ROM Respiratory: no wheezing, clear to auscultation bilateral Cardiovascular: RRR, no rub Gastrointestinal: soft ttp mid-epigastric area, only slight ttp RUQ Musculoskeletal: no edema, pulses present Neurological: non-focal, moves all 4 limbs Psychiatric: normal affect, A&O x 3 Skin: no rash, normal turgor Dx/Plan (1) Transaminitis Code(s): R74.0 - NONSPEC ELEV OF LEVELS OF TRANSAMNS & LACTIC ACID DEHYDRGNSE Status: Acute (2) HFrEF (heart failure with reduced ejection fraction) Code(s): I50.20 - UNSPECIFIED SYSTOLIC (CONGESTIVE) HEART FAILURE Status: Chronic (3) Polysubstance abuse Code(s): F19.10 - OTHER PSYCHOACTIVE SUBSTANCE ABUSE, UNCOMPLICATED Status: Chronic (4) Hyponatremia Code(s): E87.1 - HYPO-OSMOLALITY AND HYPONATREMIA Status: Acute (5) Elevated troponin Code(s): R79.89 - OTHER SPECIFIED ABNORMAL FINDINGS OF BLOOD CHEMISTRY Status : Acute (6) Hypokalemia Code(s): E87.6 - HYPOKALEMIA Status: Acute (7) Abdominal pain Code(s): R10.9 - UNSPECIFIED ABDOMINAL PAIN Status: Acute - Plan Plan: Patient is a 54F with PMHx of HFrEF, COPD admitted for: #Transaminitis in context of RUQ pain - new onset; improved since admission - RUQ US: gallbladder wall thickening, pericholecystic fluid, + collazo sign; no evidence of gallstones; suggests HIDA scan to look for acalculous cholecystitis - HIDA scan: gallbladder dyskinesia EF 9% - GI consulted, Dr. Phillip; rec ppi and continued monitoring of LFTs; patient is poor surgical candidate and abdominal US findings could be caused by hepatic congestion; abdominal ttp could be caused by gastric ulcer -h pylori neg - continues to be afebrile; WBC wnl @ 6.1 - hep panel/hiv/rpr neg, hep c pending; Hep A ab + indicating prior infection - will consider consulting gen surg today for their recs #CHF: Euvolemic and does not appear in acute exacerbation - no jvd or HJR on exam - monitor I/Os - daily weights - labs show elevated bicarb, elevated BUN/Cr, pre-renal > contraction alkalosis #Hyponatremia - serum osmoles wnl, 280 - euvolemic on exam - salt restricted HH diet #Elevated troponin: - at baseline - chronic leak from profound HFrEF #Elevated BNP, near baseline - echo last week showed no change - strict I/O #Substance abuse - UDS: +benzos, cannabis -will consider MR consult PPX: Lovenox, Pepcid, protonix Diet: HH Dispo: Prn nebs and monitor I/O. Possible gen surg consult today vs monitoring for improvement on PPI; Hep C pending Code: Full Addendum - Attending - Attending Attestation Date/Time: 07/25/19 5553 I personally evaluated the patient and discussed the management with Dr. Snyder I agree with the History, Examination, Assessment and Plan documented above with any addition or exceptions noted below. Appreciate GI recommendations regard abdominal pain and elevated transaminases. Changes not inconsistent with hepatic congestive changes from significant heart failure.Recommend trial of bentyl prn and obtain getting General surgery opinion.
[2019-07-25 05:54] LABS: ALT (SGPT) 74 U/L (8-55); AST (SGOT) 40 U/L (5-34); Albumin 3.1 g/dL (3.5-5.0); Alkaline Phosphatase 107 U/L (40-110); Anion Gap 16 mmol/L (10-20); BUN (Urea Nitrogen) 28 mg/dL (9.8-20.1); Bilirubin, Total 2.2 mg/dL (0.2-1.2); Calc. Creatinine Clearance 65 mL/min (70-130); Calcium 8.8 mg/dL (7.8-10.44); Carbon Dioxide 25 mmol/L (22-29); Chloride 91 mmol/L (98-107); Estimated GFR-MDRD 63; Globulin 2.7 g/dL (2.4-3.5); Glucose 89 mg/dL (70-105); Protein, Total 5.8 g/dL (6.0-8.3); Sodium 128 mmol/L (136-145)
[2019-07-25] MEDS: Bupropion 150 MG SR TAB PO SCH ×2 (08:58→21:09)
[2019-07-25] MEDS: Famotidine 20 MG TAB PO SCH ×2 (08:58→21:06)
[2019-07-25] MEDS: Metolazone 2.5 MG TAB PO SCH (08:59)
[2019-07-25] MEDS: Digoxin 0.125 MG TAB PO SCH (08:59)
[2019-07-25] MEDS: Furosemide 20 MG TAB PO SCH ×2 (08:59→15:04)
[2019-07-25] MEDS: Enoxaparin Sodium 40 MG/0.4 ML SYRINGE SC SCH (08:59)
[2019-07-25] MEDS: Spironolactone 25 MG TAB PO SCH ×2 (08:59→21:06)
[2019-07-25] MEDS ORDERED: Metolazone 2.5 MG TAB PO SCH (09:00)
[2019-07-25] MEDS: Carvedilol 3.125 MG TAB PO SCH ×2 (09:00→21:05)
[2019-07-25] MEDS ORDERED: Iopamidol 370 76% 100 ML VIAL ONE (10:13)
[2019-07-25] MEDS: Acetaminophen 325 MG TAB PO PRN ×2 (10:13→18:56)
[2019-07-25] MEDS: Ondansetron ODT 4 MG TAB PO PRN (10:13)
[2019-07-25 13:12] LABS: Anion Gap 15 mmol/L (10-20); BUN (Urea Nitrogen) 30 mg/dL (9.8-20.1); Calc. Creatinine Clearance 55 mL/min (70-130); Calcium 9.3 mg/dL (7.8-10.44); Carbon Dioxide 29 mmol/L (22-29); Chloride 90 mmol/L (98-107); Estimated GFR-MDRD 52; Glucose 88 mg/dL (70-105); Magnesium 1.7 mg/dL (1.6-2.6); Phosphorus 2.7 mg/dL (2.3-4.7); Potassium 4.2 mmol/L (3.5-5.1); Sodium 130 mmol/L (136-145)
--- NOTE | 2019-07-25 13:50 | CON ---
DATE OF CONSULTATION: CHIEF COMPLAINT: Midepigastric abdominal pain. HISTORY: A 54-year-old female, who was admitted with complaints of chest pain, dyspnea, and abdominal pain. She has multiple medical problems including severe cardiomyopathy with an ejection fraction of 10%, severe COPD, on prednisone, hypertension, and polysubstance abuse. PAST SURGICAL HISTORY: She has had pacemaker defibrillator and section. MEDICATIONS: Include; 1. Prednisone. 2. Spiriva. 3. Spironolactone. 4. Digoxin. 5. Inhalers. 6. Wellbutrin. 7. Sertraline. 8. Metoprolol. 9. Lisinopril. 10. Lasix. 11. Carvedilol. 12. Albuterol. SOCIAL HISTORY: She continues to smoke. She continues to use marijuana and possibly methamphetamines. ALLERGIES: SHE HAS NO KNOWN DRUG ALLERGIES. PHYSICAL EXAMINATION: VITAL SIGNS: On exam, her temperature is 97.7, pulse 94, and blood pressure 107/75. GENERAL: She is awake, alert. She says she is hungry. She wants something to eat. HEENT: No jaundice. LUNGS: Clear. HEART: Regular rate and rhythm. ABDOMEN: She is tender in the midepigastrium. No palpable mass. EXTREMITIES: Unremarkable. LABORATORY DATA: Her white count is 6, H and H of 14 and 45, and platelet count 141. Electrolytes, glucose 89 and sodium 128. She has positive hepatitis A. T-bili is 2.2, AST 40, ALT 74. She is positive for benzodiazepines and cannabinoids. IMAGING DATA: Ultrasound showed possible gallbladder wall thickening, possible pericholecystic fluid. However, HIDA scan showed prompt visualization of the gallbladder, but the ejection fraction was diminished at 9%. No stones. ASSESSMENT AND PLAN: She does not have acute cholecystitis that was ruled out by the HIDA scan. She is a very high-risk surgical patient with severe cardiomyopathy and lung disease as well as the fact she is on prednisone. I am not 100% sure that taken her gallbladder will relieve her pain as she has not had a scope to rule out peptic ulcer disease. I believe her elevated liver function tests are related to her cardiomyopathy and congestive hepatic engorgement. In order for her to be cleared for surgery, she would need a complete cardiac clearance, but I still think that she would be at high risk and if necessary, if she should develop acute cholecystitis, she would need to be treated with a cholecystostomy tube in Radiology, not with the surgical procedure. Job ID: [id number]
--- NOTE | 2019-07-25 15:55 | PRG ---
DATE OF SERVICE: 07/25/2019 SUBJECTIVE: Ms. Watters feels a little bit better today. She still has the epigastric pain and nausea. She is tolerating clear liquids. She had a formed bowel movement today. OBJECTIVE: VITAL SIGNS: Temperature is 97.7, pulse 88, blood pressure 91/64. GENERAL: She is in no acute distress. Alert and oriented x3. LUNGS: Clear to auscultation bilaterally. HEART: Regular rate and rhythm. 2/6 systolic murmur at the apex. ABDOMEN: Tender in the epigastric region with slight guarding. Her lower abdomen is soft. Bowel sounds are present. EXTREMITIES: Trace lower extremity edema. LABORATORY DATA: White blood cell count 6.1, hemoglobin 14.9, platelets 141. Creatinine 1.0, sodium is 130, bilirubin 2.2, AST 40, ALT 74, alkaline phosphatase 107, albumin 3.1. IMPRESSION: 1. Epigastric abdominal pain. This could be due to hepatic congestion and distention of Ysabel capsule or could be gallbladder related or could be peptic ulcer or gastritis. The findings on the gallbladder from ultrasound could be explained by hepatic congestion related to her cardiomyopathy. We will see how she responds to proton-pump inhibitor, and we would hold off intervention regarding her gallbladder for now. 2. Elevated liver tests secondary to congestive hepatopathy. 3. Cardiomyopathy. RECOMMENDATIONS: 1. Continue proton-pump inhibitor daily. 2. Advance to a low-fat diet. Job ID: [id number]
--- NOTE | 2019-07-25 18:34 | CT ---
EXAM: CT Abdomen Pelvis W Con PROVIDED CLINICAL HISTORY: Epigastric pain COMPARISON: 07/26/2014 FINDINGS: Partially visualized marked cardiomegaly. Visualized lung bases are free of significant opacity. The liver, spleen, pancreas, kidneys and adrenal glands demonstrate an unremarkable CT appearance. There is mild free intraperitoneal fluid, primarily about the right hepatic margin and within the pel ruben cul-de-sac. There is no bowel dilatation, localized inflammatory fat stranding or free air apparent. The appendix appears normal. Reflux of contrast material into the hepatic veins is noted. The osseous structures demonstrate no concerning lytic or blastic lesions. IMPRESSION: Mild free intraperitoneal fluid. Marked cardiomegaly and evidence for right heart dysfunction.
--- NOTE | 2019-07-25 21:46 | CON ---
DATE OF CONSULTATION: PRIMARY CARE DOCTOR: Dr. Wills at [facility], but patient plans to change her primary care doctor to [facility]. PRIMARY CONVEYOR MAN: Nina Lindsay MD The patient's primary envelope folding machine adjuster in outpatient is Cardiology at [facility]. PRIMARY GI DOCTOR: SURGEON: General surgeon, Dr. Almanza. REASON FOR CARDIOLOGY CONSULT: History of chronic heart failure, ventricular tachycardia, and possible cardiology clearance. HISTORY OF PRESENT ILLNESS: Ms. Watters is a very pleasant 54-year-old female with a significant history of chronic systolic heart failure, EF was 10% to 15% since 2014 with normal coronary arteries by the cardiac cath in 2014 and AICD placement in 2016, current smoker and polysubstance abuse and severe COPD. The patient started having a sharp pain to the epigastric area for 1 month. She is also having shortness of breath for more than 1 month. She was in the hospital on July 14 for the shortness of breath and decreased appetite without weight loss and the patient was discharged but the patient returned to the ER due to the severe pain in the epigastric area and she was found to have elevated liver function level; however, postponing any procedure or surgery at this moment due to the severe chronic systolic heart failure with EF 10% to 15%. She denied any chest pain, heaviness, tightness, or numbness in the left arm. However, she reports today that she continued having discharge from patient's defibrillator. The patient's AICD interrogation today shows the patient had a discharge on July 24, 2019 and today around 1130 hours, also since January 2019. Also, she states that she passed out at [place] about 1 to 2 months ago because of the discharge from AICD. However, the patient's defibrillator interrogation today did not show the evidence of discharge from AICD around that time. She has a envelope folding machine adjuster. She has been following up with Cardiology at [facility]. Last office visit was two months ago and the patient was told that the patient was doing well. She has not had any echocardiograms or further cardiac workup at the Cardiology in [facility] over the last 6 months. The patient's last echocardiogram was done on July 14, 2019, with EF 10% to 15%, moderately enlarged right ventricular cavity, moderate mitral valve regurgitation, moderate to severe tricuspid regurgitation, and moderate pulmonary regurgitation. The patient underwent cardiac catheterization in July 2014, with normal coronary arteries and the patient had the chest thoracic CTA on July 14, 2019, showing the 1.4 cm nodule at the middle left upper lobe with irregular pleural thickening at the right lung apex. MEDICAL HISTORY: Chronic systolic heart failure; severe COPD, on prednisone; polysubstance abuse; and current smoker, half pack a day. SURGICAL HISTORY: [place] AICD placement in April 2017. MEDICATIONS: 1. Atrovent. 2. Lasix 20 mg twice a day. 3. Prednisone 20 mg two tablets once a day. 4. Bupropion 150 mg twice a day. 5. Coreg 3.125 mg twice a day. 6. Digoxin 0.125 mg once a day. 7. Metolazone 2.5 mg once a day. 8. Spironolactone 25 mg half tablet twice a day. 9. Lisinopril 2.5 mg once a day. ALLERGIES: SHE HAS NO KNOWN DRUG ALLERGIES. FAMILY HISTORY: Noncontributory. SOCIAL HISTORY: She is , and she is disabled. She has 2 children, who are living well. She is living with friends in [place]. She continues to smoke half pack a day. She smokes marijuana. She has not taken meth for more than five years. She used to be heroin and cocaine drug abuser, but she has not had it for more than 20 years according to patient's report. She does not exercise. She drinks one cup of tea a day. REVIEW OF SYSTEMS: 12-point review of systems is negative unless otherwise mentioned in the HPI. PHYSICAL EXAMINATION: VITAL SIGNS: Blood pressure 91/64 with holding any blood pressure and diuretic medication. Pulse is 88, sinus rhythm. Respiratory rate 20, O2 saturation 96% with room air, and temperature 97.7. GENERAL: The patient is alert and oriented x4, not in acute distress. HEENT: Head is normocephalic and atraumatic. Eyes, extraocular muscle movements are intact. ENT and mouth, oral and nasal mucosa are moist without lesion. NECK: Supple. Normal range of motion. No JVD. No bruits or thrills noted. RESPIRATORY: Clear to auscultate bilaterally, but very diminished at the bases, more to the right side than left side. CARDIOVASCULAR: Regular rate and rhythm. Normal S1 and S2. There is no S3 or S4. No significant murmur, hives, or thrills noted. 2+ pulses in bilateral upper and lower extremities. No edema in the lower extremities. ABDOMEN: Soft, nontender. No mass to palpate. The patient has complained of severe tenderness or pain with palpation to the epigastric area. SKIN: Warm and dry. No lesion, rash, or erythema noted. MUSCULOSKELETAL: The patient is able to move all extremities without difficulty. The patient denied claudication. NEUROLOGIC: The patient is alert and oriented x4, nonfocal. PSYCHIATRIC: The patient's mood is appropriate. LABORATORY DATA: WBC 6.1, hemoglobin 14.9, hematocrit 45.3, and platelets 141. Sodium 130, potassium 4.2, BUN 30, creatinine 1.10, glucose 88, calcium 9.3, and magnesium 1.7. AST 40, ALT 74, CK-MB 4.3, troponin 0.04 x3. Positive marijuana and benzodiazepine. Positive for hepatitis A and B. IMAGING DATA: Abdominal ultrasound shows no gallbladder wall thickening with positive Taylor sign without evidence of gallstones. ASSESSMENT AND PLAN: 1. Chronic systolic heart failure. The patient's condition is stable at this moment with room air. The patient has been on carvedilol 3.125 mg twice a day, metolazone 2.5 mg once a day, Lasix 20 mg twice a day, and digoxin 0.125 mg once a day. She used to be on lisinopril 2.5 mg once a day at home. If patient's blood pressure is stable, low dose of Entresto is a good option for this patient to improve her ejection fraction. She already had AICD placement in April 2017. 2. Status post ventricular tachycardia. According to patient's defibrillator interrogation, the patient had two episodes of ventricular tachycardia yesterday and today. She also reports that she had a defibrillator discharge 1 to 2 months ago when she passed out at [place]; however, there are no indications in patient's AICD interrogation. The patient had a cardiac catheterization in 2014, which showed normal; however, due to the recent episode, the patient may undergo cardiac catheterization, at least stress test for further cardiac evaluation. I would like to defer to Dr. Lindsay for the decision. At this moment, this patient is stable. The patient has been on the awake overnight monitor while this admission. 3. Complaint of epigastric abdominal pain with HIDA scan with 90% gallbladder ejection fraction, possibly due to gallbladder dyskinesia or cholecystitis or peptic ulcer versus other etiology. The patient has been followed by the GI doctor, Dr. Phillip. 4. Nonischemic cardiomyopathy with AICD placement in April 2017. 5. Hypertension. The patient's blood pressure has been on low side with holding the patient's blood pressure medication and diuretic medication. If patient's blood pressure is stable, we would like to start Entresto and beta-marguerite for this patient. 6. Current tobacco abuse. Strongly recommend to start smoking cessation. 7. Severe chronic obstructive pulmonary disease. The patient is stable with room air at this moment. We would like to defer to the patient's primary care doctor. Thank you very much for Cardiology Service to participate in the care of this patient. We will follow along with patient's care team and make further recommendations as appropriate. Job ID: [id number]
[2019-07-26] MEDS: Ipratropium Bromide 2.5 ml Neb NEB SCH ×4 (00:22→19:44)
--- NOTE | 2019-07-26 00:22 | CON ---
DATE OF CONSULTATION: 07/25/2019 INDICATION FOR CONSULTATION: A 54-year-old female with history of known cardiomyopathy, which is nonischemic in nature. She is status post AICD implant and followed by [facility] for her Cardiology as well as her AICD. About 5 years ago, I was seen in this hospital. I saw the patient at that time. She had a cardiac catheterization performed, which showed ejection fraction of again 10% to 15% by echocardiogram, as well as by cardiac catheterization. The coronary arteries also were found to be normal and she was diagnosed as nonischemic cardiomyopathy. She has a long history in the past of using polysubstance abuse. She had used cocaine in the past and also recently has been using methamphetamines. On this admission, she is positive for benzodiazepines. She says a friend had given her some Valium and also she is positive for marijuana, but no methamphetamine or cocaine at this time. She still continues to smoke cigarettes apparently. Otherwise, she has had no significant chest pain. She was admitted with abdominal pain. She has had some problems in the past I believe with pancreatitis, but otherwise despite her severe decrease in ejection fraction, doing relatively well, but does admit that she was shocked about 3 times in the last year by the AICD. She had a recent shock back in May or June. She also has had some ventricular tachycardia since being on the telemetry floor, which appears to have been paced terminated by the device. PAST MEDICAL HISTORY: Please refer the notes dictated by the nurse practitionerFrederick. SOCIAL HISTORY: Please refer the notes dictated by the nurse practitionerFrederick. FAMILY HISTORY: Please refer the notes dictated by the nurse practitionerFrederick. REVIEW OF SYSTEMS: Please refer the notes dictated by the nurse practitionerFrederick. ALLERGIES: PLEASE REFER THE NOTES DICTATED BY THE NURSE PRACTITIONERFREDERICK. MEDICATIONS: Please refer the notes dictated by the nurse practitionerFrederick. PHYSICAL EXAMINATION: GENERAL: Reveals a middle-aged female, who actually appears older than her stated age. VITAL SIGNS: Appeared to be relatively stable at this time. Blood pressure is 107/75. HEENT: Shows head to be normocephalic and atraumatic. She has some ecchymosis in various places, the lower extremities and also upper extremities. CHEST: Clear to auscultation without rales, rhonchi, or wheezing. CARDIOVASCULAR: Appears to be regular at this time. I believe she is pacing 100% of the time. It appears that she does have an S4. ABDOMEN: She has tenderness throughout the entire abdominal area. It could not palpate due to the tenderness. EXTREMITIES: Show no clubbing or cyanosis. I do not see any significant edema. Pedal pulses are present, but are somewhat decreased. NEUROLOGIC: The patient appears to be intact. IMPRESSION: Middle-aged female with severe cardiomyopathy with possible gallbladder disease. She has undergone evaluation and shows probably a mild decrease in function of gallbladder, but continues to have abdominal discomfort and may need to undergo further evaluation. Her cardiomyopathy is difficult to determine whether or not she is controlled or not or stable due to her recent AICD shocks. I will ask cab supervisor to re-evaluate, see if we need to reprogram the device. She certainly has systolic heart failure and also has some degree most likely of diastolic failure on the echocardiogram. She does have dilated left ventricle. Her BNP is elevated most likely due to congestive heart failure, which is most likely right and left-sided failure. As far as her AICD is concerned, I do not know whether or not this is a biventricular device but appears to be a dual-chamber device, but does not biventricular. She may need to undergo an upgrade to a biventricular device to see if this will help some with the ejection fraction. It appears on her EKGs that she is 100% paced and may benefit from a Bi-V device. If this is not already implanted, but I cannot determine for now that were performed. We can review the chest x-ray perhaps and see whether or not she has two leads or three leads. We will discuss the best way to proceed if she only has dual chamber device. On evaluation of the x-rays, she does have biventricular device. She has a lead in the coronary sinus, as well as in the right ventricle. There is a lead in the right atrium. We still have the cab supervisor discuss with the patient. We will evaluate the device and see if there any adjustments that can be made. We will also ask the heart failure specialist to see the patient in consultation to see if there is any other added benefits that may be given to management of her medications. I will review her medications to see whether or not we can make any adjustments there. Otherwise, she does not have any ischemic cardiomyopathy but all appears to be nonischemic cardiomyopathy. At least five years ago, coronaries were normal. As far as her other medical problems, please refer to the dictations already dictated by the hospitalist, as well as the specialist with GI or sausage meat trimmer. At this time, I will re-evaluate her medications also to see whether or not we will need to make any changes in her medications. She also was noted to be hypokalemic, which may have initiated some of the ventricular tachycardia that she suffered while being here on telemetry. This now appears to have been adjusted. We will continue to monitor that very closely. Job ID: [id number]
[2019-07-26 04:59] LABS: #Basophils 0.1 thou/uL (0.0-0.2); #Eosinphils 0.1 thou/uL (0.0-0.7); #Lymphocytes 1.5 thou/uL (1.20-3.40); #Monocytes 0.6 thou/uL (0.11-0.59); #Neutrophils 5.7 thou/uL (1.40-6.50); %Basophils 1.2 % (0.0-1.0); %Eosinophils 0.9 % (0.0-10.0); %Lymphocytes 18.4 % (21.0-51.0); %Neutrophils 71.5 % (42.0-75.0); Hemoglobin 15.5 g/dL (12.0-16.0); Mean Corpuscular HGB CONC 32.5 g/dL (32.0-36.0); Mean Corpuscular Hemoglobin 30.8 pg (27.0-31.0); Mean Corpuscular Volume 94.7 fL (78.0-98.0); Mean Platelet Volume 8.5 fL (7.4-10.4); Platelet Count 153 thou/uL (130-400); RBC Distribution Width 14.3 % (11.5-14.5); Red Blood Cell (RBC) Count 5.04 mill/uL (4.20-5.40)
[2019-07-26 05:19] LABS: ALT (SGPT) 79 U/L (8-55); AST (SGOT) 55 U/L (5-34); Albumin 3.3 g/dL (3.5-5.0); Alkaline Phosphatase 109 U/L (40-110); Anion Gap 20 mmol/L (10-20); BUN (Urea Nitrogen) 31 mg/dL (9.8-20.1); Bilirubin, Total 2.3 mg/dL (0.2-1.2); Calc. Creatinine Clearance 46 mL/min (70-130); Calcium 9.3 mg/dL (7.8-10.44); Carbon Dioxide 24 mmol/L (22-29); Chloride 89 mmol/L (98-107); Estimated GFR-MDRD 42; Globulin 2.9 g/dL (2.4-3.5); Glucose 93 mg/dL (70-105); Potassium 4.6 mmol/L (3.5-5.1); Protein, Total 6.2 g/dL (6.0-8.3); Sodium 128 mmol/L (136-145)
--- NOTE | 2019-07-26 05:27 | PDOC.FM ---
- Subjective Subjective: Doing well this morning. No new complaints at this time. Her abdominal pain has significantly improved. - Objective MAR Reviewed: Yes Vital Signs & Weight: Vital Signs (12 hours) Temp Pulse Resp BP Pulse Ox 07/26/19 04:00 97.4 F L 90 16 104/81 95 07/25/19 23:38 87 106/83 07/25/19 19:56 97.2 F L 95 18 92/54 L 97 07/25/19 18:36 98 16 98 Weight Weight 58.513 kg I&O: 07/24/19 07/25/19 07/26/19 06:59 06:59 06:59 Intake Total 120 720 Output Total 300 Balance -180 720 Result Diagrams: 07/26/19 04:30 07/26/19 04:29 Phys Exam - Physical Examination Constitutional: NAD HEENT: moist MMs, sclera anicteric Neck: supple, full ROM Respiratory: no wheezing, no rales, no rhonchi, clear to auscultation bilateral Cardiovascular: RRR, no significant murmur Gastrointestinal: soft, non-tender Musculoskeletal: no edema Neurological: moves all 4 limbs Psychiatric: normal affect, A&O x 3 Skin: no rash, normal turgor Dx/Plan (1) Abdominal pain Code(s): R10.9 - UNSPECIFIED ABDOMINAL PAIN Status: Acute (2) Transaminitis Code(s): R74.0 - NONSPEC ELEV OF LEVELS OF TRANSAMNS & LACTIC ACID DEHYDRGNSE Status: Acute (3) Elevated troponin Code(s): R79.89 - OTHER SPECIFIED ABNORMAL FINDINGS OF BLOOD CHEMISTRY Status : Acute (4) Hyponatremia Code(s): E87.1 - HYPO-OSMOLALITY AND HYPONATREMIA Status: Acute (5) HFrEF (heart failure with reduced ejection fraction) Code(s): I50.20 - UNSPECIFIED SYSTOLIC (CONGESTIVE) HEART FAILURE Status: Chronic - Plan Plan: Transaminitis in context of RUQ pain - RUQ US: gallbladder wall thickening, pericholecystic fluid, + collazo sign; no evidence of gallstones; suggests HIDA scan to look for acalculous cholecystitis - HIDA scan: gallbladder dyskinesia EF 9% - GI consulted, Dr. Phillip; recommended ppi and continued monitoring of LFTs. - hep panel/hiv/rpr neg, hep c pending; Hep A ab + indicating prior infection - advance diet as tolerated. CHF: Euvolemic and does not appear in acute exacerbation - no jvd or HJR on exam - monitor I/Os - daily weights Hyponatremia - euvolemic on exam - Will give 250mL NS and recheck BMP @ 1400. Advancing diet to full liquid and advance as tolerated. Elevated troponin: - at baseline - chronic leak from profound HFrEF Elevated BNP, near baseline - echo last week showed no change - strict I/O Substance abuse - UDS: +benzos, cannabis -will consider [facility] consult PPX: Lovenox, Pepcid, protonix Diet: HH Dispo: Stable, inpatient. Code: Full Addendum - Attending - Attending Attestation Date/Time: 07/26/19 1220 I personally evaluated the patient and discussed the management with Dr. Ramirez I agree with the History, Examination, Assessment and Plan documented above with any addition or exceptions noted below. Small fluid bolus weight significantly down from admit with elevated Creat. Consider prn bentyl and low fat diet as not good candidate for any elective surgery.
[2019-07-26] MEDS ORDERED: Sodium Chloride 0.9% 250 ML IV SCH (09:00)
[2019-07-26] MEDS: Bupropion 150 MG SR TAB PO SCH ×2 (10:32→21:03)
[2019-07-26] MEDS: Spironolactone 25 MG TAB PO SCH ×2 (10:32→20:26)
[2019-07-26] MEDS: Metolazone 2.5 MG TAB PO SCH (10:32)
[2019-07-26] MEDS: Digoxin 0.125 MG TAB PO SCH (10:33)
[2019-07-26] MEDS: Carvedilol 3.125 MG TAB PO SCH ×2 (10:33→20:26)
[2019-07-26] MEDS: Famotidine 20 MG TAB PO SCH ×2 (10:33→20:26)
[2019-07-26] MEDS: Furosemide 20 MG TAB PO SCH ×2 (10:33→14:09)
[2019-07-26] MEDS: Enoxaparin Sodium 40 MG/0.4 ML SYRINGE SC SCH (10:34)
[2019-07-26] MEDS: Ondansetron ODT 4 MG TAB PO PRN ×2 (10:36→15:23)
--- NOTE | 2019-07-26 13:54 | CON ---
DATE OF CONSULTATION: 07/26/2019 REASON FOR CONSULT: Management of acute on chronic heart failure. HISTORY OF PRESENT ILLNESS: Ms. Angélica Watters, a 54-year-old female, with known heart failure with reduced ejection fraction due to nonischemic cardiomyopathy, was admitted for acute on chronic heart failure. Apparently, her heart failure started at about 2014. At that time, she reportedly used cocaine and possible amphetamine. She stopped using illicit drugs. Her heart failure was treated and she was discharged. She was being followed by [facility] and then she said that she made some improvements and overall she has not been that well. It was also reported that coronary angiogram at that time did not show any significant coronary artery disease; therefore, she has a nonischemic cardiomyopathy. Over the past year, she has been fatigued and she has dyspnea on exertion. Her walking distance has been quite short. About a month ago, she can still walk about 25 feet or more that is from her front door to truck. However, in the last month she has progression of symptoms. Now she could barely make it from her bedroom to the bathroom. She had to stop between her bedroom and the bathroom. This is due to fatigue and shortness of breath. She has shortness of breath at rest. She does not have strength or stamina to take a shower standing up. She had to sit down to take a shower. At nighttime, she sleeps on three pillows or more. When she dozes off, then she will wake up needing to take a deep breath. Sometimes she cannot sleep at all because of that. Consequently, she gives a good example of paroxysmal nocturnal dyspnea every night. She also has early satiety. Small amount of food will cause fullness quickly and then small amount of food also causes nausea. Lately, she also developed diffuse pressure chest pain, combination of symptoms that caused her to seek care. She was admitted briefly on July 14 with these the symptoms then she was also discharged on July 15. She said that she really has not improved at home. She believes that she is becoming worse. She had two episodes of syncope and also shock. These episodes occurred about two months ago. The first episode, she was at home sitting on the couch. She then lost consciousness. Then the shock woke her back up. The second time occurred while in [employer] sitting down. She was with a friend. This was witnessed. The sequence of events was that she lost consciousness as well as fell on the table, then the shock brought her back. She went home. Unfortunately, she did not seek health care. PAST MEDICAL HISTORY: 1. Heart failure with reduced ejection fraction due to nonischemic cardiomyopathy. Reported 2014 coronary angiogram did not show any significant disease. 2. COPD. FAMILY HISTORY: 1. Her father is still alive at age 70. She does not know of health problems. 2. Her mother is still alive at age 70 with coronary artery disease. 3. She has two brothers and one sister. She does not know much about them. SOCIAL HISTORY: 1. She has started smoking from age 16. She still smokes now. So, she has smoking history of 38 years, approximately one pack per day. 2. She denied alcohol use. 3. She said that she occasionally use marijuana currently. She admitted to use cocaine and amphetamine but she stopped in 2014 with development of heart failure. HOME MEDICATION: List in the computer system includes 1. Metolazone 2.5 mg daily. 2. Lisinopril 2.5 mg daily. 3. Digoxin 0.125 mg daily. 4. Carvedilol 3.125 mg daily. 5. Symbicort one puff b.i.d. 6. Bupropion 150 mg daily. 7. Albuterol 2 puffs q.4 hours as needed. 8. Spironolactone 12.5 mg b.i.d. 9. Tiotropium once daily. 10. Lasix 20 mg twice a day. Her active cardiac medication includes 1. Carvedilol 3.125 mg twice a day. 2. Digoxin 0.125 mg daily. 3. Lasix 20 mg twice per day. 4. Spironolactone 12.5 mg twice per day. 5. Metolazone 2.5 mg daily. REVIEW OF SYSTEMS: GENERAL: Progressive fatigue but no fever or chills. HEENT: There is no change in vision, hearing, or swallowing. PULMONARY: Please see HPI. CARDIOVASCULAR: Please see HPI. GI: Please see HPI. : She has no problem with urination. MUSCULOSKELETAL: She does not complain off joint pains or muscle pains. NEUROLOGIC: She does not complain off any neurologic deficits or weaknesses. PSYCHIATRIC: She is very concerned about her health. PHYSICAL EXAMINATION: VITAL SIGNS: Heart rate 90, blood pressure 113/81. Telemetry was reviewed. It showed most likely a sensed V paced rhythm. GENERAL: She is a thin, frail, older than her stated age, female who was not able to sustain long sentences. HEENT: Show EOMI. Oropharynx benign with moist mucosa. There is no erythema, no exudate. NECK: Her JVP is very elevated. It is at the earlobe while sitting up. Consequently, she has at least 15 cm of JVP. LUNGS: There is good air movement in both lungs; however, there is some diminished breath sounds at left base. CARDIAC: Regular rate and rhythm with 3/6 holosystolic murmur at the apex with radiation to the left axilla. Her PMI is inferiorly and laterally displaced. ABDOMEN: Soft, little bit discomfort occur with deeper palpation. Her lower extremity has about 2+ edema from feet to skilled nursing up towards the knees. LABORATORY VALUES: Sodium 128, potassium 4.6, BUN 31, and creatinine 1.31. Echocardiogram from July 14, 2019, was reviewed. - She has severely dilated left ventricle, it was measured at 8.6 cm. - Her left ventricular ejection fraction is 10%. - She has at least moderate mitral regurgitation. - She has moderately dilated right ventricle with moderately depressed function - Severe triscuspid regurgitation - bilateral atrial enlargement ASSESSMENT: A 54-year-old female has heart failure with reduced ejection fraction due to nonischemic cardiomyopathy. She is at [place] Heart Association classification 3B. She has both systolic and diastolic dysfunction. Her right ventricle is functioning well enough to keep her periphery edema at bay and has the potential of supporting a left ventricular assist device. Currently she has low cardiac output and also she is volume overloaded. Her severely elevated JVP to the earlobe corresponds to her volume overload. Her sodium is dropping. Her creatinine is increasing. This also showed that she is in volume overload and low cardiac output. She will need to have increased cardiac output to support diuresis and to retain renal function. She will need inotropic support. Please see the following for detailed recommendations. RECOMMENDATIONS: 1. Please move her to IMCU. 2. Start Milrinone at 0.125 mcg/kg/minute IV GTT. If her systolic blood pressure is over 90, then you can increase that to 0.25 mcg/kg/minute IV GTT. After that, wait for another hour if her blood pressure remains at 90 mmHg or higher then increased to 0.375 mcg/minutes IV GTT. 3. Stop metolazone. 4. Stop oral Lasix. 5. After Milrinone has reached goal for 6 hours, please give Lasix 40 mg IV one dose. 6. Continue carvedilol at 3.125 q.12 hours for now. This will need to be titrated up to be 6.25 mg twice a day. 7. Before start IV Lasix, also give albumin 25 g IV one dose. 8. With her right ventricle still functioning, this is a good time to consider left ventricular assist device implant. If we wait much longer, then her right ventricle would not be able to push the blood to support a left ventricular assist device. Left ventricular assistive device is her best bridging option. However, in order for that to occur, she needs to have someone who would be willing to stay with her for 24/7 for 30 days after discharge from hospital. Because she has expressed that they would want to pursue this. She has chosen [place] as the city to have it done. She has a daughter there, consequently she has family nearby that can help if the left ventricle assist device being done in [place]. This information was discussed with Dr. Gamez and I also appreciate the help from Dr. Luzma Lindsay on this consultation. It has been a pleasure taking care of Ms. Watters. Thank you for the interesting consult. If you have any questions, please give me a call. Job ID: [id number] MTDD
[2019-07-26 14:10] LABS: Anion Gap 15 mmol/L (10-20); BUN (Urea Nitrogen) 32 mg/dL (9.8-20.1); Calc. Creatinine Clearance 46 mL/min (70-130); Calcium 9.1 mg/dL (7.8-10.44); Carbon Dioxide 27 mmol/L (22-29); Chloride 91 mmol/L (98-107); Estimated GFR-MDRD 42; Glucose 159 mg/dL (70-105); Potassium 4.4 mmol/L (3.5-5.1); Sodium 129 mmol/L (136-145)
--- NOTE | 2019-07-26 14:47 | PRG ---
DATE OF SERVICE: 07/26/2019 SUBJECTIVE: Ms. Watters still has some epigastric abdominal pain, but it is improving overall. She has had no nausea or vomiting, and is tolerating a full liquid diet. OBJECTIVE: VITAL SIGNS: Temperature is 96.0, pulse 90, and blood pressure is 109/70. GENERAL: She is in no acute distress. Alert and oriented x3. LUNGS: Clear to auscultation bilaterally. HEART: Regular rate and rhythm. ABDOMEN: Soft, mild tenderness in the epigastric region without guarding. Bowel sounds are present. EXTREMITIES: No lower extremity edema. IMPRESSION: 1. Congestive hepatopathy. Her liver tests remain elevated, but stable. 2. Epigastric abdominal pain. She is showing some improvement with the proton pump inhibitor. I would continue the PPI and avoid further intervention for her gallbladder at this point. RECOMMENDATIONS: 1. Advance diet. 2. I will sign off for now. Please call if GI can be of assistance. Job ID: [id number]
[2019-07-26] MEDS: Milrinone 20 MG in Sodium Chloride 0.9% 100 ML IVPB SCH (14:48)
[2019-07-26] MEDS: Acetaminophen 325 MG TAB PO PRN (15:22)
--- NOTE | 2019-07-26 15:28 | PDOC.CPN ---
- Subjective Date: 07/26/19 Time: 15:35 Interval history: The pt seen and examined. No overnight events. No cardiac complaints. Discussed about her current diagnosis and future plan with the pt and her daughter via phone - Objective Allergies/Adverse Reactions: Allergies Allergy/AdvReac Type Severity Reaction Status Date / Time No Known Allergies Allergy Verified 08/08/14 23:20 Visit Medications: Current Medications Acetaminophen (Tylenol) 650 mg PO Q4H PRN PRN Reason: Headache/Fever/Mild Pain (1-3) Last Admin: 07/26/19 15:22 Dose: 650 mg Albumin Human (Albumin 25%) 25 gm IVPB ONE ONE Stop: 07/26/19 15:27 Albuterol Sulfate (Ventolin) 2.5 mg NEB Q2H PRN PRN Reason: SOB &/or Wheezing Albuterol/Ipratropium (Duoneb) 3 ml NEB Q4H PRN PRN Reason: SOB &/or Wheezing Bupropion HCl (Wellbutrin Sr) 150 mg PO BID [facility] Last Admin: 07/26/19 10:32 Dose: 150 mg Carvedilol (Coreg) 3.125 mg PO BID [facility] Digoxin (Lanoxin) 0.125 mg PO DAILY [facility] Last Admin: 07/26/19 10:33 Dose: 0.125 mg Enoxaparin Sodium (Lovenox) 40 mg SC 0900 [facility] Last Admin: 07/26/19 10:34 Dose: 40 mg Famotidine (Pepcid) 20 mg PO BID [facility] Last Admin: 07/26/19 10:33 Dose: 20 mg Milrinone Lactate 20 mg/ (Sodium Chloride) 120 mls @ 0 mls/hr IVPB INF YEN; Protocol Last Admin: 07/26/19 14:48 Dose: 120 mls Ipratropium [place] (Atrovent) 2.5 ml NEB [id number] [facility] Last Admin: 07/26/19 12:28 Dose: 2.5 ml Ondansetron HCl (Zofran Odt) 4 mg PO Q6H PRN PRN Reason: Nausea/Vomiting Last Admin: 07/26/19 15:23 Dose: 4 mg Ondansetron HCl (Zofran) 4 mg IVP Q6H PRN PRN Reason: Nausea/Vomiting Pantoprazole Sodium (Protonix) 40 mg PO BID [facility] Last Admin: 07/26/19 10:33 Dose: 40 mg Sertraline HCl (Zoloft) 50 mg PO DAILY [facility] Last Admin: 07/26/19 10:32 Dose: 50 mg Sodium Chloride (Flush - Normal Saline) 10 ml IVF PRN PRN PRN Reason: Saline Flush Last Admin: 07/24/19 20:29 Dose: 10 ml Spironolactone (Aldactone) 12.5 mg PO BID [facility] Last Admin: 07/26/19 10:32 Dose: 12.5 mg Vital Signs & Weight: Vital Signs Temp Pulse Resp BP Pulse Ox 07/26/19 15:18 98.0 F 07/26/19 12:28 90 14 07/26/19 11:30 96 F L 93 20 109/70 95 07/26/19 10:33 75 07/26/19 07:32 96.1 F L 88 16 113/81 100 07/26/19 07:20 90 14 07/26/19 04:00 97.4 F L 90 16 104/81 95 Weight 129 lb - Physical Exam General: alert & oriented x3 HEENT: mucus membranes moist Neck: supple neck Cardiac: regular rate and rhythm, S1/S2 Lungs: clear to auscultation, decreased breath sounds Extremities: no edema - Labs Result Diagrams: 07/26/19 04:30 07/26/19 13:43 Troponin/CKMB CK-MB (CK-2) 4.3 ng/mL (0-6.6) 07/23/19 11:40 Troponin I 0.040 ng/mL (< 0.028) H 07/24/19 09:08 - Telemetry Sinus rhythms and dysrhythmias: other (V paced) - Assessment/Plan Assessment/Plan: 1. Acute on Chronic Systolic HF with EF 10% - the pt will tx to IMCU for starting Milrinone 0.125mg/kg/min and will increase 0.125mg every 1 hr up to 0.375mg/kg/min; then Albumin x 1 dose and Lasix after Ablumin in 6 hrs if she reaches to the goal of Milrinone drip dosage. Plan for LVAD placement possible in [place], [place] where her daughter lives 2. Non-ischemic CMY with hx of AICD placement in 2017 3. s/p VT? - stable; EP consult; cont. monitoring on tele 4. Epigastric pain - managed by GI 5. Current tobacco and Substance abuse - strongly recommend smoking and substance cessation 6. COPD MAR reviewed
[2019-07-26] MEDS ORDERED: Albumin 25% 25 GM/100 ML BOT IVPB SCH (15:45)
[2019-07-26] MEDS ORDERED: Furosemide 40 MG/4 ML VIAL SLOW IVP SCH (21:45)
[2019-07-27] MEDS: Ipratropium Bromide 2.5 ml Neb NEB SCH ×4 (00:53→19:42)
[2019-07-27 04:06] LABS: #Basophils 0.1 thou/uL (0.0-0.2); #Eosinphils 0.2 thou/uL (0.0-0.7); #Lymphocytes 0.9 thou/uL (1.20-3.40); #Monocytes 0.6 thou/uL (0.11-0.59); #Neutrophils 4.6 thou/uL (1.40-6.50); %Basophils 0.9 % (0.0-1.0); %Eosinophils 2.6 % (0.0-10.0); %Lymphocytes 14.6 % (21.0-51.0); %Neutrophils 72.9 % (42.0-75.0); Hemoglobin 13.8 g/dL (12.0-16.0); Mean Corpuscular HGB CONC 32.4 g/dL (32.0-36.0); Mean Corpuscular Hemoglobin 30.5 pg (27.0-31.0); Mean Corpuscular Volume 94.3 fL (78.0-98.0); Mean Platelet Volume 8.1 fL (7.4-10.4); Platelet Count 138 thou/uL (130-400); RBC Distribution Width 14.1 % (11.5-14.5); Red Blood Cell (RBC) Count 4.53 mill/uL (4.20-5.40); White Blood Cell (WBC) Count 6.3 thou/uL (4.8-10.8)
[2019-07-27 04:11] LABS: ALT (SGPT) 68 U/L (8-55); AST (SGOT) 46 U/L (5-34); Albumin 3.5 g/dL (3.5-5.0); Alkaline Phosphatase 96 U/L (40-110); Anion Gap 16 mmol/L (10-20); BUN (Urea Nitrogen) 32 mg/dL (9.8-20.1); Calc. Creatinine Clearance 49 mL/min (70-130); Calcium 9.1 mg/dL (7.8-10.44); Carbon Dioxide 32 mmol/L (22-29); Chloride 87 mmol/L (98-107); Estimated GFR-MDRD 46; Globulin 2.4 g/dL (2.4-3.5); Glucose 122 mg/dL (70-105); Protein, Total 5.9 g/dL (6.0-8.3); Sodium 132 mmol/L (136-145)
[2019-07-27 04:13] LABS: Potassium 2.6 mmol/L (3.5-5.1)
--- NOTE | 2019-07-27 05:06 | PDOC.FM ---
- Subjective Subjective: Doing well this morning. Her epigastric pain has improved significantly. She feels well. States she feels that her heart is beating harder. - Objective MAR Reviewed: Yes Vital Signs & Weight: Vital Signs (12 hours) Temp Pulse Resp Pulse Ox 07/27/19 03:46 97.8 F 07/27/19 00:53 81 12 92 L 07/26/19 23:39 97.8 F 07/26/19 20:00 99 07/26/19 19:44 91 12 94 L 07/26/19 19:30 97.6 F Weight Weight 58.513 kg Most Recent Monitor Data Heart Rate from ECG 81 NIBP 101/74 NIBP BP-Mean 83 Respiration from ECG 16 SpO2 99 I&O: 07/25/19 07/26/19 07/27/19 06:59 06:59 06:59 Intake Total 120 720 580 Output Total 300 0 Balance -180 720 580 Result Diagrams: 07/27/19 03:31 07/27/19 03:31 Phys Exam - Physical Examination Constitutional: NAD HEENT: moist MMs Neck: supple, full ROM Respiratory: no wheezing, no rales, no rhonchi, clear to auscultation bilateral Cardiovascular: RRR, no significant murmur, no rub Gastrointestinal: soft mildly tender in the epigastric region, mild guarding. Musculoskeletal: pulses present, edema present Neurological: non-focal, moves all 4 limbs Psychiatric: normal affect, A&O x 3 Skin: no rash, normal turgor Dx/Plan (1) Abdominal pain Code(s): R10.9 - UNSPECIFIED ABDOMINAL PAIN Status: Acute (2) Transaminitis Code(s): R74.0 - NONSPEC ELEV OF LEVELS OF TRANSAMNS & LACTIC ACID DEHYDRGNSE Status: Acute (3) Elevated troponin Code(s): R79.89 - OTHER SPECIFIED ABNORMAL FINDINGS OF BLOOD CHEMISTRY Status : Acute (4) Hyponatremia Code(s): E87.1 - HYPO-OSMOLALITY AND HYPONATREMIA Status: Acute (5) HFrEF (heart failure with reduced ejection fraction) Code(s): I50.20 - UNSPECIFIED SYSTOLIC (CONGESTIVE) HEART FAILURE Status: Chronic - Plan Plan: Epigastric pain, transaminitis. - RUQ US: gallbladder wall thickening, pericholecystic fluid, + collazo sign; no evidence of gallstones; suggests HIDA scan to look for acalculous cholecystitis - HIDA scan: gallbladder dyskinesia EF 9% - GI consulted, Dr. Phillip; recommended continued PPI. - Transaminitis likely 2/2 to congestive hepatopathy. HFrEF, nonischemic cardiomyopathy. Acute exacerbation. - transferred to [facility] yesterday for ionotropic support and diuresis. On Milrinone gtt. - monitor I/Os - daily weights Hypokalemia - 40meq K IV this morning. Repeat BMP 12:00. Mg level pending. Hyponatremia - improving Elevated troponin: - at baseline - chronic leak from profound HFrEF Elevated BNP, near baseline - echo last week showed no change - strict I/O Substance abuse - States she quit illicit drugs in 2014. Still uses MJ occasionally. Still smokes 1ppd cigarettes. PPX: Lovenox, Protonix Diet: HH Dispo: Stable, inpatient. Code: Full Addendum - Attending - Attending Attestation Date/Time: 07/27/19 1050 I personally evaluated the patient and discussed the management with Dr. Ramirez I agree with the History, Examination, Assessment and Plan documented above with any addition or exceptions noted below. Patient moved to MICU for milrinone drip and further management HF and fluid overload. Appreciate evaluation and management per Dr Crowley regard severe HFrEF s /p ACID pacer with ? paced tachycardia currently under evaluation. Patient being considered for LVAD given severity of her disease. Dr Crowley has discussed management in detail with FMR team.
[2019-07-27] MEDS ORDERED: Potassium Chloride 40 MEQ in Sodium Chloride 0.9% 250 ML 250 ML IVPB SCH ×2 (05:15→05:45)
[2019-07-27] MEDS: Milrinone 20 MG in Sodium Chloride 0.9% 100 ML IVPB SCH ×2 (05:39→21:21)
[2019-07-27] MEDS ORDERED: Magnesium 2 GM/50 ML 2 GM in Premix Bag 1 BAG IVPB SCH (09:00)
[2019-07-27] MEDS ORDERED: Furosemide 40 MG/4 ML VIAL SLOW IVP SCH ×2 (09:15→11:00)
[2019-07-27] MEDS ORDERED: Potassium Chloride 20 MEQ TAB PO SCH (09:15)
[2019-07-27] MEDS ORDERED: Carvedilol 6.25 MG TAB PO SCH ×3 (09:45→17:00)
[2019-07-27] MEDS: Famotidine 20 MG TAB PO SCH ×2 (09:49→21:22)
[2019-07-27] MEDS: Enoxaparin Sodium 40 MG/0.4 ML SYRINGE SC SCH (09:49)
[2019-07-27] MEDS: Digoxin 0.125 MG TAB PO SCH (09:49)
[2019-07-27] MEDS: Bupropion 150 MG SR TAB PO SCH ×2 (10:57→21:22)
[2019-07-27] MEDS ORDERED: Spironolactone 25 MG TAB PO SCH ×2 (11:00→13:00)
[2019-07-27] MEDS: Spironolactone 25 MG TAB PO SCH (11:55)
[2019-07-27] MEDS: Carvedilol 3.125 MG TAB PO SCH (11:56)
[2019-07-27] MEDS ORDERED: Potassium Chloride 40 MEQ in Premix Bag 1 BAG IVPB SCH (12:00)
[2019-07-27 12:36] LABS: Anion Gap 15 mmol/L (10-20); BUN (Urea Nitrogen) 33 mg/dL (9.8-20.1); Calc. Creatinine Clearance 42 mL/min (70-130); Calcium 9.2 mg/dL (7.8-10.44); Carbon Dioxide 30 mmol/L (22-29); Chloride 90 mmol/L (98-107); Estimated GFR-MDRD 39; Glucose 182 mg/dL (70-105); Potassium 3.4 mmol/L (3.5-5.1); Sodium 132 mmol/L (136-145)
[2019-07-27] MEDS: Potassium Chloride 20 MEQ TAB PO SCH ×2 (13:04→16:40)
[2019-07-27] MEDS: Magnesium 2 GM/50 ML 2 GM in Premix Bag 1 BAG IVPB SCH ×2 (13:04→13:58)
[2019-07-27] MEDS: Amiodarone HCl 450 MG in Dextrose 5% in Water 250 ML IVPB SCH ×2 (14:19→21:39)
--- NOTE | 2019-07-27 15:31 | PRG ---
DATE OF SERVICE: 07/27/2019 HISTORY OF PRESENT ILLNESS: Ms. Watters was transferred from [facility] to [facility]. Milrinone was started at 0.125 mcg/kg IVGTT. It was titrated up to 0.375 mcg/kg/minute without any difficulties. Afterwards, she did receive Lasix 40 mg IV one dose where she put out nearly 2 L with that. This morning, she said that she felt much better and relaxed, breathing easier, and greater strength. However, her potassium dropped from 4.4 down to 2.6. Due to lack of central line, she was given 40 mEq of potassium in a larger volume of normal saline. About 4th hour into the normal saline, she developed chest pressure, shortness of breath, not feeling well. REVIEW OF SYSTEMS: GENERAL: There is no fever or chills, however, she is better than worse. Please see HPI. HEENT: There is no change in vision, hearing, or swallowing. PULMONARY: Please see HPI. CARDIOVASCULAR: Please see HPI. GI: She still has abdominal discomfort. : She is able to urinate without difficulty. INTEGUMENT: There is no skin breakdown. NEUROLOGIC: There are no focal deficits. PSYCHIATRIC: She is anxious, however, she does want to receive as best care as possible. MEDICATIONS: Her current cardiac medications: 1. Carvedilol 3.125 mg b.i.d., has not been given yet. 2. Milrinone 0.375 mcg/kg/minute. 3. She did receive 1 dose of Lasix 40 mg IV last night. PHYSICAL EXAMINATION: VITAL SIGNS: Telemetry was reviewed. She had a sudden increase in the heart rate between 6 and 7 a.m. this morning. Her heart rate went up to as fast as about 125. It is a paced rhythm. There is some irregularity when the waveforms are different, within the same waveform it is regular, so consequently this could be either sinus tachycardia, atrial tachycardia, or atrial fibrillation. Her blood pressure is 101/85. GENERAL: She is alert and conversational. HEENT: EOMI. Oropharynx benign with moist mucosa. NECK: Her JVP is still elevated right at the earlobe which is about 15 cm. PULMONARY: She has bilateral crackles at the bases. This is worse than yesterday afternoon. CARDIAC: Tachycardia with 3/6 holosystolic murmur at the apex with radiation to the left axilla. Potential presence of an S3 gallop. ABDOMEN: Soft. There is some mild discomfort with palpation. EXTREMITIES: Lower extremities, she still has slight pitting edema from her feet about usp up towards knees, it is less than yesterday. INPUTS AND OUTPUTS: She is -900 mL from 1 day, it is mostly due to a single dose of IV Lasix. The single dose of Lasix produced 1950 mL output. LABORATORY DATA: Her laboratory values showed that her sodium increased from 129 to 132, her potassium decreased from 4.4 down to 2.6, her creatinine improved from 1.32 down to 1.22. Her BUN remained the same at 32. ASSESSMENT: A 54-year-old female, likely to reside in AHA stage D and also [place] Heart [employer] class IIIB heart failure with reduced ejection fraction due to nonischemic cardiomyopathy. Milrinone and IV diuretics temporarily help her. She resides in a very tenuous state. This morning, potentially extra fluid load with underlying condition probably tipped her over to more decompensation. She probably has underlying atrial arrhythmia that needs to be addressed. For now, the immediate actions will be to correct her electrolytes and give her sufficient medication to slow her heart rate down and put her into a better state. RECOMMENDATIONS: 1. Please stop the large volume IV potassium for now and switch to oral potassium. Please give potassium 40 mEq orally every 8 hours for today and check potassium at least twice per day and supplement as needed. 2. Increase carvedilol to 6.25 mg twice per day, first dose now. 3. Once the oral potassium is in for about an hour, please give furosemide 40 mg IV one dose. 4. Please restart spironolactone at 12.5 mg daily. 5. She may have inappropriate pacing. I will contact Dr. Eyad Ramírez, her cellophaner, to come and see here. We will interrogate and reprogram her biventricular AICD as needed. Her situation was discussed with her and her daughter, named Anali. Her condition and the need for urgent left ventricular assist device were discussed. She is not qualified for heart transplant evaluation due to smoking history. The left ventricular assist device will provide her bridge where she can stop smoking and show that she can be compliant with the medication and have recovery of overall physiological function, and sometime in the future, then she can be evaluated and listed for transplant. Her daughter has agreed to take her back to [place], and her daughter and she have agreed that they will first pursue transfer to [facility] at [place] to have this done, and I have contacted Dr. April Garcia at [facility] and the process has been started. Job ID: [id number] DAVIDE
[2019-07-27] MEDS: Magnesium Oxide 400 MG TAB PO SCH ×2 (16:40→21:23)
[2019-07-27] MEDS: Carvedilol 6.25 MG TAB PO SCH (16:40)
--- NOTE | 2019-07-27 16:50 | CON ---
DATE OF CONSULTATION: 07/27/2019 PRIMARY CARE PHYSICIAN: Riaz Wills MD REFERRING PREKINDERGARTEN TEACHER: Neto Crowley MD REASON FOR CONSULTATION: Atrial flutter, HUMAN RESOURCES OFFICE MANAGER-D evaluation. HISTORY OF PRESENT ILLNESS: Ms. Watters is a pleasant 54-year-old white female with a history of chronic systolic heart failure due to dilated nonischemic cardiomyopathy, [employer] HUMAN RESOURCES OFFICE MANAGER-D, ventricular tachycardia, and COPD. She was admitted on July 23, 2019, with acute exacerbation of chronic systolic heart failure. She has daily severe exertional dyspnea, relieved with rest. In addition, she had orthopnea and edema which were daily and moderate in intensity. She had 2 episodes of syncope. On interrogation of her HUMAN RESOURCES OFFICE MANAGER-D, she had ventricular tachycardia requiring therapy on March 24, 2019 and April 20, 2019. She presented in sinus rhythm. She developed atrial flutter with 2:1 conduction. In addition, she was tracking at the upper rate limit. Interrogation of her [employer] HUMAN RESOURCES OFFICE MANAGER-D shows normal function. We pace terminated her atrial flutter with a cycle length of 240 milliseconds through noninvasive EP study. She initially went into atrial fibrillation and then converted to sinus rhythm. She has a history of illicit drug use, which she has stopped. Her initial heart failure diagnosis was in 2014. Cardiac catheterization at that time showed normal coronary arteries. PAST MEDICAL HISTORY: 1. Chronic systolic heart failure due to nonischemic cardiomyopathy. 2. COPD. 3. History of IV drug use. FAMILY HISTORY: Positive for coronary artery disease in her mother. SOCIAL HISTORY: Smokes 1 pack a day for 38 years. No alcohol. Occasional marijuana. No cocaine or amphetamine since 2014. HOME MEDICATIONS: Reviewed, see list. REVIEW OF SYSTEMS: Positive for syncope, orthopnea, paroxysmal nocturnal dyspnea. Negative for joint or muscle pains, urinary symptoms, neurologic deficits, or weakness. PHYSICAL EXAMINATION: GENERAL: Alert and oriented x4. In mild respiratory distress. VITAL SIGNS: Afebrile. Blood pressure 93/51, pulse 115, and respiratory rate 16. HEENT: No lesions. Sclerae clear. NECK: Elevated jugular venous distention to the angle of the jaw. LUNGS: Clear to auscultation bilaterally. Normal respiratory effort. CARDIOVASCULAR: Tachycardic, regular rhythm. No murmurs, gallops, rubs. ABDOMEN: Nontender, nondistended. EXTREMITIES: 1+ edema bilaterally. DIAGNOSTIC STUDIES: EKG sinus rhythm with biventricular pacing. Telemetry, atrial flutter, we do not have 12-lead of atrial flutter. Difficult to determine whether it is typical or atypical. IMPRESSION AND PLAN: 1. Acute exacerbation of chronic systolic heart failure. 2. Atypical atrial flutter. Noninvasive electrophysiology study has converted her to sinus rhythm. 3. Paroxysmal atrial fibrillation, brief episode of atrial fibrillation after pace termination of atrial flutter. 4. Dilated nonischemic cardiomyopathy. RECOMMENDATIONS: 1. Amiodarone intravenously per protocol. We will hold off on a bolus due to her low blood pressure. 2. Lovenox 1 mg/kg subcutaneously q.12 hours. 3. We will arrange to follow her ICD in our clinic. 4. Consider ablation of her atrial fibrillation and atrial flutter in the future once stabilized. I discussed the case with Dr. Neto Crowley at the bedside and outside the room. Job ID: [id number]
[2019-07-27 19:33] LABS: Anion Gap 14 mmol/L (10-20); BUN (Urea Nitrogen) 34 mg/dL (9.8-20.1); Calc. Creatinine Clearance 37 mL/min (70-130); Calcium 9.3 mg/dL (7.8-10.44); Carbon Dioxide 32 mmol/L (22-29); Chloride 89 mmol/L (98-107); Estimated GFR-MDRD 33; Glucose 165 mg/dL (70-105); Potassium 4.3 mmol/L (3.5-5.1); Sodium 131 mmol/L (136-145)
[2019-07-27] MEDS: Enoxaparin Sodium 60 MG/0.6 ML SYRINGE SC SCH (21:22)
[2019-07-28] MEDS: Ondansetron ODT 4 MG TAB PO PRN (01:07)
[2019-07-28] MEDS: Ipratropium Bromide 2.5 ml Neb NEB SCH ×4 (01:25→18:47)
[2019-07-28] MEDS ORDERED: Morphine 2 MG/ML SYRINGE SLOW IVP SCH (03:15)
[2019-07-28 04:03] LABS: #Eosinphils 0.1 thou/uL (0.0-0.7); #Lymphocytes 0.9 thou/uL (1.20-3.40); #Monocytes 1.3 thou/uL (0.11-0.59); #Neutrophils 8.8 thou/uL (1.40-6.50); %Basophils 0.3 % (0.0-1.0); %Eosinophils 0.8 % (0.0-10.0); %Lymphocytes 8.3 % (21.0-51.0); %Monocytes 11.8 % (0.0-10.0); %Neutrophils 78.8 % (42.0-75.0); Hemoglobin 14.8 g/dL (12.0-16.0); Mean Corpuscular HGB CONC 32.7 g/dL (32.0-36.0); Mean Corpuscular Hemoglobin 30.9 pg (27.0-31.0); Mean Corpuscular Volume 94.4 fL (78.0-98.0); Mean Platelet Volume 8.2 fL (7.4-10.4); Platelet Count 160 thou/uL (130-400); RBC Distribution Width 14.5 % (11.5-14.5); Red Blood Cell (RBC) Count 4.78 mill/uL (4.20-5.40); White Blood Cell (WBC) Count 11.1 thou/uL (4.8-10.8)
[2019-07-28 04:28] LABS: ALT (SGPT) 125 U/L (8-55); AST (SGOT) 130 U/L (5-34); Albumin 3.8 g/dL (3.5-5.0); Alkaline Phosphatase 101 U/L (40-110); Anion Gap 18 mmol/L (10-20); BUN (Urea Nitrogen) 37 mg/dL (9.8-20.1); Bilirubin, Total 2.5 mg/dL (0.2-1.2); Calc. Creatinine Clearance 35 mL/min (70-130); Calcium 9.4 mg/dL (7.8-10.44); Carbon Dioxide 27 mmol/L (22-29); Chloride 89 mmol/L (98-107); Estimated GFR-MDRD 32; Globulin 2.5 g/dL (2.4-3.5); Glucose 128 mg/dL (70-105); Potassium 4.4 mmol/L (3.5-5.1); Protein, Total 6.3 g/dL (6.0-8.3); Sodium 130 mmol/L (136-145)
--- NOTE | 2019-07-28 05:21 | PDOC.FM ---
- Subjective Subjective: Patient doing okay this morning. Reports her abdominal pain has improved somewhat since her admission to the hospital. Discussed plans for possibly arranging transfer to [place] for LVAD, patient agreeable with plan of care. - Objective Vital Signs & Weight: Vital Signs (12 hours) Temp Pulse Resp Pulse Ox 07/28/19 03:44 98.2 F 07/27/19 23:32 97.7 F 07/27/19 20:00 96 07/27/19 19:42 71 16 98 07/27/19 19:37 98.0 F Weight Weight 57.561 kg Most Recent Monitor Data Heart Rate from ECG 74 NIBP 87/64 NIBP BP-Mean 71 Respiration from ECG 18 SpO2 95 I&O: 07/26/19 07/27/19 07/28/19 06:59 06:59 06:59 Intake Total 720 970 935 Output Total 1950 1275 Balance 695 -918 -139 Result Diagrams: 07/28/19 03:48 07/28/19 03:48 EKG Reviewed by me: Yes (sinus 70s) Phys Exam - Physical Examination Constitutional: NAD HEENT: moist MMs, sclera anicteric Neck: supple, full ROM Respiratory: no wheezing Crackles BLL Cardiovascular: RRR, no rub Gastrointestinal: soft ttp mid-epigastric area Musculoskeletal: no edema, pulses present Neurological: non-focal, moves all 4 limbs Psychiatric: normal affect, A&O x 3 Skin: no rash, normal turgor Dx/Plan (1) Transaminitis Code(s): R74.0 - NONSPEC ELEV OF LEVELS OF TRANSAMNS & LACTIC ACID DEHYDRGNSE Status: Acute (2) HFrEF (heart failure with reduced ejection fraction) Code(s): I50.20 - UNSPECIFIED SYSTOLIC (CONGESTIVE) HEART FAILURE Status: Chronic (3) Polysubstance abuse Code(s): F19.10 - OTHER PSYCHOACTIVE SUBSTANCE ABUSE, UNCOMPLICATED Status: Chronic (4) Hyponatremia Code(s): E87.1 - HYPO-OSMOLALITY AND HYPONATREMIA Status: Acute (5) Elevated troponin Code(s): R79.89 - OTHER SPECIFIED ABNORMAL FINDINGS OF BLOOD CHEMISTRY Status : Acute (6) Hypokalemia Code(s): E87.6 - HYPOKALEMIA Status: Acute (7) Abdominal pain Code(s): R10.9 - UNSPECIFIED ABDOMINAL PAIN Status: Acute - Plan Plan: Patient is a 54F with PMHx of HFrEF, COPD admitted for: #Epigastric pain, transaminitis. - RUQ US: gallbladder wall thickening, pericholecystic fluid, + collazo sign; no evidence of gallstones; suggests HIDA scan to look for acalculous cholecystitis - HIDA scan: gallbladder dyskinesia EF 9% - GI consulted, Dr. Phillip; recommended continued PPI. - Gen surg consulted, Dr. Almanza; patient not surgical candidate - Transaminitis likely 2/2 to congestive hepatopathy. #HFrEF, nonischemic cardiomyopathy. Acute exacerbation. - On Milrinone gtt, continued diuresis - per Dr. Crowley, HF clinic, increase daily carvedilol to 6.25mg BID, continue home spironolactone 12.5mg qd - per Dr. Crowley's note patient currently waiting for transfer to [facility] for LVAD - monitor I/Os - daily weights #Aflutter, resolved -Dr. Ramírez, EP, consulted -non-invasive EP study converted her to sinus rhythm, patient continues to be in sinus this am #Hypokalemia - potassium 4.4 this am, stable - will continue to monitor #Hyponatremia - sodium 130 this am - will continue to monitor #Elevated troponin: - at baseline - chronic leak from profound HFrEF #Elevated BNP, near baseline - recent echo showed no change - strict I/O #Substance abuse - States she quit illicit drugs in 2014. Still uses MJ occasionally. Still smokes 1ppd cigarettes. -UDS+benzos, cannabis PPX: Lovenox, Protonix Diet: Dispo: Stable, inpatient. Per notes Dr. Crowley has begun process to transfer patient to [facility] in [place] for LVAD, will continue to follow. PICC line today for continued milrinone drip Code: Full
[2019-07-28] MEDS ORDERED: Spironolactone 25 MG TAB PO SCH (08:00)
--- NOTE | 2019-07-28 08:32 | PRG ---
DATE OF SERVICE: 07/28/2019 SUBJECTIVE: The patient continues to have dyspnea. She is able to lie flat and speak in complete sentences. She has no palpitations, syncope, or falls overnight. PHYSICAL EXAMINATION: GENERAL: Alert and oriented x4. No apparent distress. Well groomed. VITAL SIGNS: Temperature 98, pulse 71, respiratory rate 12, blood pressure 109/ 71. HEENT: No lesions. Sclerae clear. NECK: Jugular venous distention to the angle of the jaw. CARDIOVASCULAR: Regular rate and rhythm. No murmurs, gallops, rubs. LUNGS: Clear to auscultation bilaterally. Normal respiratory effort. EXTREMITIES: Show trace edema bilaterally. DIAGNOSTIC DATA: Telemetry; sinus rhythm with biventricular pacing. IMPRESSION: 1. Atypical atrial flutter, successfully pace terminated yesterday through her device. She is on intravenous amiodarone without recurrence. 2. Paroxysmal atrial fibrillation. Atrial fibrillation occurred after attempts at pace termination and converted to sinus rhythm after several minutes. 3. [employer] SURGICAL CODER-D, normal function. 4. Ventricular tachycardia - Requiring ICD shocks last fall. None this admission. RECOMMENDATIONS: 1. I discussed the case at length with the patient and Dr. Neto Crowley. 2. We will increase her lower rate limit to 80 beats per minute to assist with her cardiac output. 3. Discontinue intravenous amiodarone, change to amiodarone 200 mg p.o. b.i.d. with meals. Job ID: [id number] MTDD
[2019-07-28] MEDS ORDERED: Milrinone 20 MG in Sodium Chloride 0.9% 100 ML IVPB SCH (09:00)
[2019-07-28] MEDS ORDERED: Furosemide 100 MG/10 ML VIAL SLOW IVP SCH ×2 (09:00→21:00)
--- NOTE | 2019-07-28 09:45 | PRG ---
DATE OF SERVICE: 07/28/2019 SERVICE: [facility] Failure [facility]ing Service. SUBJECTIVE: Mrs. Watters had a variable day yesterday. At first milrinone was providing good relief and Lasix 40 mg IV provided good diuresis. She then received large volume of potassium. Some time later, she went into fast heart rate. Pacemaker and ICD were interrogated and reprogrammed at bedside. It was found that she had some runs of ventricular tachycardia that did not show up at the telemetry. She also had some bouts of ventricular tachycardia in the recent past. At the time of interrogation, she was in atrial flutter. Due to this setting, the atrial flutter was either passing or being paced at about 125 beats per minute. At such a high rate, her heart could not tolerate it. She was having shortness of breath, chest pressure, and very uncomfortable with it. We then did antitachycardia pacing at atrial position. She first converted to atrial fibrillation and shortly after she converted to sinus rhythm. Due to combination of ventricular tachycardia, atrial flutter, atrial fibrillation, and her intolerance, amiodarone drip was started. A loading dose was avoided because we did not want to drop her blood pressure. Since starting the amiodarone drip, she has remained in sinus rhythm. This morning, she says she is breathing easier than when she was admitted, but overall she still has some episodic right shoulder pain and generally not feeling well. REVIEW OF SYSTEMS: GENERAL: Fatigue, but no fever or chills. HEENT: There is no changing in vision, hearing, or swallowing. PULMONARY: Please see HPI. CARDIOVASCULAR: Please see HPI. GI: She still has upsets. : She has no problem urinating. NEUROLOGIC: There are no focal deficits. INTEGUMENT: There is no breakdown. PSYCH: She is not depressed, but concerned about her status. She does want to get better. MEDICATIONS: Her cardiac medications include, 1. Amiodarone drip currently started at 1 mg/minute for 6 hours. Currently, she is on 0.5 mg/minute for 18 hours. 2. Carvedilol 6.25 mg twice per day. 3. Digoxin 0.25 mg daily. 4. Milrinone currently at 0.375 mcg/kg/minute. 5. Spironolactone at 12.5 mg daily. 6. K-Dur 40 mEq t.i.d. for now. PHYSICAL EXAMINATION: VITAL SIGNS: Heart rate 72, blood pressure 108/73. GENERAL: Fatigued, frail, older than her age looking woman, reclining in bed. HEENT: EOMI. Oropharynx benign. There is no erythema. No exudate. Her mucosa is moist. NECK: Her JVP is still at the earlobe, that is at least 15 cm. PULMONARY: She still has bilateral crackles, more prominent on the right base. CARDIAC: Regular rate and rhythm, loud 2/6 holosystolic murmur at apex with strong radiation to the left axilla, and her PMI is inferolaterally displaced. ABDOMEN: Slightly distended. Positive bowel sounds. EXTREMITIES: Lower extremity, there are good pulses, but there is a trace edema. I's and O's are documented at net negative 445 mL. LABORATORY DATA: Mrs. Watters's lab values show sodium is decreased down to 130, potassium is stable at 4.4, creatinine has crept up at 1.67 and BUN is 37, and also her total bilirubin has increased to 2.5. ASSESSMENT: A 54-year-old female resides in [place] Heart Association stage D and [place] Heart Association class 3B heart failure with reduced ejection fraction, most likely due to nonischemic cardiomyopathy. Her ventricle is dilated at 8.7 cm. Her LVEF is 10%. Consequently, this is very severe heart failure. She will not tolerate atrial fibrillation or atrial flutter. Her episodic recurring ventricular tachycardia is also a sign of her severe heart disease. She is volume overloaded by exam and by decrease in sodium. Her cardiac output has also decreased as evidenced by a rising total bilirubin. We will need to continue to optimize her cardiac output and work on a transition to a location that can provide her definitive therapy. Otherwise, she will not survive very long. Please see the following for detailed recommendations. RECOMMENDATIONS: 1. Increase milrinone to 0.425 mcg/kg/minute IV GTT, may need a further step-up later on, I will come back for that. 2. I have spoken to the EP, they will come by and increase her baseline heart rate to 80, this is to provide her with greater cardiac output. 3. Convert her IV amiodarone to p.o. amiodarone 200 mg bid today. 4. Give Lasix 60 mg IV b.i.d. today. 5. Continue potassium supplement for now. 6. Please place double lumen PICC. She will need access. Please do this today. 7. I have contacted Dr. April Garcia. She is the territory sales manager medical for advanced heart failure treatment at [facility]. She cannot accept the patient unless they get financial clearance. The face sheet has been faxed. We are expecting a call back from [facility] in [place] about accepting the patient. In the meantime, I will need to check with the other centers such as [facility] and also [facility]. It has been a pleasure of taking care of Ms. Angélica Watters. Please give me a call, if you have any questions. Job ID: [id number] MTDD
--- NOTE | 2019-07-28 10:09 | SPC ---
Ultrasound-guidedleftupper extremity PICC placement: 07/28/2019 HISTORY: Congestive heart failure, IV access requested for heart failure medication FINDINGS: Informed consent obtained prior to the procedure. Left antecubital fossa prepped and draped in normal sterile fashion. Skin overlying theleft basilicvein anesthetized with 1% buffered lidocaine. With direct sonographic g uidance, vascular access is obtained via the left basilicvein and an 0.018in wire was advanced to the IVC, retracted to the cavoatrial junction. Intravascular length is calculated at 38 cm and of the PICC is cut accordingly. Needle is removed and replaced with a peel-away sheath. The PICC was advanced over the wire. Wire and peel-away sheath were removed. The tip of the catheter overlies the proximal right atrium. The port flushes well and the catheter is ready for use. Exposure data: 0.1 minutes of fluoroscopic time 667 mGy per centimeter squared IMPRESSION: Successful ultrasound guided placement of a leftupper extremity PICC.
--- NOTE | 2019-07-28 10:12 | PDOC.CPN ---
- Subjective Date: 07/28/19 Time: 10:19 Interval history: The pt seen and examined. No overnight events. No cardiac complaints. Plan for PICC line placement - Objective Allergies/Adverse Reactions: Allergies Allergy/AdvReac Type Severity Reaction Status Date / Time No Known Allergies Allergy Verified 08/08/14 23:20 Visit Medications: Current Medications Acetaminophen (Tylenol) 650 mg PO Q4H PRN PRN Reason: Headache/Fever/Mild Pain (1-3) Last Admin: 07/26/19 15:22 Dose: 650 mg Albuterol Sulfate (Ventolin) 2.5 mg NEB Q2H PRN PRN Reason: SOB &/or Wheezing Albuterol/Ipratropium (Duoneb) 3 ml NEB Q4H PRN PRN Reason: SOB &/or Wheezing Last Admin: 07/27/19 14:08 Dose: 3 ml Amiodarone HCl (Cordarone) 200 mg PO BID [facility] Bupropion HCl (Wellbutrin Sr) 150 mg PO BID [facility] Last Admin: 07/27/19 21:22 Dose: 150 mg Carvedilol (Coreg) 6.25 mg PO BID-[facility] Last Admin: 07/27/19 16:40 Dose: 6.25 mg Digoxin (Lanoxin) 0.125 mg PO DAILY [facility] Last Admin: 07/27/19 09:49 Dose: 0.125 mg Enoxaparin Sodium (Lovenox) 60 mg SC 0900,2099 [facility] Last Admin: 07/27/19 21:22 Dose: 60 mg Famotidine (Pepcid) 20 mg PO 2100 [facility] Furosemide (Lasix) 80 mg SLOW IVP 0900,2099 [facility] Stop: 07/28/19 21:01 Furosemide (Lasix) 60 mg SLOW IVP DAILY [facility] Milrinone Lactate 20 mg/ (Sodium Chloride) 120 mls @ 8.95 mls/hr IVPB INF [facility]; Protocol Ipratropium [place] (Atrovent) 2.5 ml NEB [id number] [facility] Last Admin: 07/28/19 07:50 Dose: 2.5 ml Magnesium Oxide (Magnesium Oxide) 400 mg PO TID [facility] Last Admin: 07/27/19 21:23 Dose: 400 mg Ondansetron HCl (Zofran Odt) 4 mg PO Q6H PRN PRN Reason: Nausea/Vomiting Last Admin: 07/28/19 01:07 Dose: 4 mg Ondansetron HCl (Zofran) 4 mg IVP Q6H PRN PRN Reason: Nausea/Vomiting Pantoprazole Sodium (Protonix) 40 mg PO DAILY [facility] Potassium Chloride (K-Dur) 40 meq PO TID-[facility] Last Admin: 07/27/19 16:40 Dose: 40 meq Sertraline HCl (Zoloft) 50 mg PO DAILY [facility] Last Admin: 07/27/19 09:49 Dose: 50 mg Sodium Chloride (Flush - Normal Saline) 10 ml IVF PRN PRN PRN Reason: Saline Flush Last Admin: 07/28/19 03:32 Dose: 10 ml Spironolactone (Aldactone) 12.5 mg PO QAM-[facility] Vital Signs & Weight: Vital Signs Temp Pulse Resp Pulse Ox 07/28/19 07:53 97 07/28/19 07:50 71 18 97 07/28/19 07:10 98.0 F 07/28/19 03:44 98.2 F 07/27/19 23:32 97.7 F Weight 129 lb 4.8 oz - Physical Exam General: alert & oriented x3 HEENT: mucus membranes moist Neck: supple neck Cardiac: regular rate and rhythm, S1/S2 Lungs: clear to auscultation Neuro: cranial nerve 2-12 intact Extremities: no edema - Labs Result Diagrams: 07/28/19 03:48 07/28/19 03:48 Troponin/CKMB CK-MB (CK-2) 4.3 ng/mL (0-6.6) 07/23/19 11:40 Troponin I 0.040 ng/mL (< 0.028) H 07/24/19 09:08 - Telemetry Sinus rhythms and dysrhythmias: sinus rhythm - Assessment/Plan Assessment/Plan: 1. Acute on Chronic Systolic HF with EF 10% - On Milrinone drip which managed by Dr Crowley; PM low HR limit was increased to 80 to increase cardiac outpt. Lasix 60mg IV BID will be given today; Dr Crowley had contacted to director at [facility] in [place], [place] (appreciate Dr Crowley' input) PICC line placement today 2. Non-ischemic CMY with hx of AICD placement in 2017 3. Hx of VT/aflutter/Afib - stable with Amiodarone, which will be changed to 200mg PO BID from today; appreciate EP input; 4. Epigastric pain - managed by GI 5. Current tobacco and Substance abuse - strongly recommend smoking and substance cessation 6. COPD MAR reviewed Pt. seen and eval. by me. Thanks for Dr. Crowley's assistance. She is feeling better today than yesterday. Will see if the Milrinone will give better outpiu now that she is in a sinus rhythm.
[2019-07-28] MEDS: Potassium Chloride 20 MEQ TAB PO SCH ×3 (10:30→18:32)
[2019-07-28] MEDS: Carvedilol 6.25 MG TAB PO SCH ×2 (10:31→18:32)
[2019-07-28] MEDS: Spironolactone 25 MG TAB PO SCH (10:31)
[2019-07-28] MEDS: Enoxaparin Sodium 60 MG/0.6 ML SYRINGE SC SCH ×2 (10:33→21:01)
[2019-07-28] MEDS: Digoxin 0.125 MG TAB PO SCH (10:33)
[2019-07-28] MEDS: Bupropion 150 MG SR TAB PO SCH ×2 (10:33→21:01)
[2019-07-28] MEDS: Magnesium Oxide 400 MG TAB PO SCH ×3 (10:34→21:01)
[2019-07-28] MEDS ORDERED: Amiodarone HCl 450 MG in Dextrose 5% in Water 250 ML IVPB SCH (11:00)
[2019-07-28] MEDS ORDERED: Amiodarone 200 MG TAB PO SCH (11:00)
--- NOTE | 2019-07-28 13:21 | PQF ---
CLINICAL DOCUMENTATION IMPROVEMENT CLARIFICATION FORM: ICD-10 Updated PLEASE DO AN ADDENDUM TO THE PROGRESS NOTE WITH ANY DOCUMENTATION UPDATES OR ADDITIONS AND CARRY THROUGH TO DC SUMMARY. THANK YOU. DATE: 07/28/2019 ATTN: Dr. Snyder/ Attending Dr. Gamez Please exercise your independent, professional judgment in responding to the clarification form. Clinical indicators are provided on the bottom of this form for your review Please check appropriate box(s): [x] Acute Renal Failure (ARF) / Acute Kidney Injury (OJ) [ ] Insignificant Lab value. [ ] Other diagnosis [ ] Unable to determine In addition, please specify: Present on Admission (POA): [ ] Yes [x] No [ ] Unable to determine For continuity of documentation, please document condition throughout progress notes and discharge summary. Thank You. CLINICAL INDICATORS - SIGNS / SYMPTOMS/ LABS are present in the medical record: 07/23 07/26 LABS: Creatinine 1.00 1.32 1.22 1.42 1.61 Estimated GFR 58 42 46 39 33 (Keo) Assessment: Her sodium is dropping. Her creatinine is increasing. This also showed that she is in volume overload and low cardiac output. She will need to have increased cardiac output to support diuresis and to retain renal function. 07/26 (Keo) LAB: her creatinine improved from 1.32 down to 1.22 07/27 (Keo) LAB: creatinine has crept up at 1.67 RISKS: H&P 07/23: PMH of severe HFrEF, COPD, drug abuse, HTN. Order Lasix 40 mg slow IVP now 07/23/2019. TREATMENT: 07/[address] Gamez: Pt moved to [facility] for mirinone drip and further management HF and fluid overload. JUL 28: Lasix 80 mg slow IVP 0900, 2100 (Total doses 2) Lab orders for CMP: 07/25, , 07/26, 07/27 Thank you, Alisson (This form is maintained as a part of the permanent medical record) 2014 [employer]. All Rights Reserved Alisson [place], RN, BSN [email or web address] Office: [phone] [facility]
[2019-07-28 19:37] LABS: Anion Gap 15 mmol/L (10-20); BUN (Urea Nitrogen) 37 mg/dL (9.8-20.1); Calc. Creatinine Clearance 40 mL/min (70-130); Calcium 9.1 mg/dL (7.8-10.44); Carbon Dioxide 30 mmol/L (22-29); Chloride 89 mmol/L (98-107); Estimated GFR-MDRD 36; Glucose 171 mg/dL (70-105); Magnesium 1.6 mg/dL (1.6-2.6); Potassium 4.6 mmol/L (3.5-5.1); Sodium 129 mmol/L (136-145)
[2019-07-28] MEDS ORDERED: Magnesium 2 GM/50 ML 2 GM in Premix Bag 1 BAG IVPB SCH (20:15)
[2019-07-28] MEDS: Famotidine 20 MG TAB PO SCH (21:01)
[2019-07-28] MEDS: Amiodarone 200 MG TAB PO SCH (21:01)
[2019-07-29] MEDS: Ipratropium Bromide 2.5 ml Neb NEB SCH ×4 (00:32→18:28)
[2019-07-29 04:46] LABS: #Eosinphils 0.2 thou/uL (0.0-0.7); #Lymphocytes 0.9 thou/uL (1.20-3.40); #Monocytes 0.8 thou/uL (0.11-0.59); #Neutrophils 5.6 thou/uL (1.40-6.50); %Basophils 0.3 % (0.0-1.0); %Eosinophils 3.2 % (0.0-10.0); %Lymphocytes 11.7 % (21.0-51.0); %Monocytes 10.3 % (0.0-10.0); %Neutrophils 74.5 % (42.0-75.0); Hemoglobin 13.6 g/dL (12.0-16.0); Mean Corpuscular HGB CONC 32.2 g/dL (32.0-36.0); Mean Corpuscular Hemoglobin 30.6 pg (27.0-31.0); Mean Corpuscular Volume 94.9 fL (78.0-98.0); Mean Platelet Volume 8.7 fL (7.4-10.4); Platelet Count 139 thou/uL (130-400); RBC Distribution Width 14.6 % (11.5-14.5); Red Blood Cell (RBC) Count 4.46 mill/uL (4.20-5.40); White Blood Cell (WBC) Count 7.6 thou/uL (4.8-10.8)
[2019-07-29 04:50] LABS: ALT (SGPT) 167 U/L (8-55); AST (SGOT) 156 U/L (5-34); Albumin 3.5 g/dL (3.5-5.0); Alkaline Phosphatase 93 U/L (40-110); Anion Gap 13 mmol/L (10-20); BUN (Urea Nitrogen) 34 mg/dL (9.8-20.1); Calc. Creatinine Clearance 46 mL/min (70-130); Calcium 9.1 mg/dL (7.8-10.44); Carbon Dioxide 34 mmol/L (22-29); Chloride 87 mmol/L (98-107); Estimated GFR-MDRD 42; Globulin 2.5 g/dL (2.4-3.5); Glucose 119 mg/dL (70-105); Potassium 3.5 mmol/L (3.5-5.1); Sodium 130 mmol/L (136-145)
--- NOTE | 2019-07-29 05:18 | PDOC.FM ---
- Subjective Subjective: Patient doing well this morning. Reports her stomach is feeling better. Discussed that we are still waiting to hear from [facility]. Patient agreeable with plan of care. - Objective Vital Signs & Weight: Vital Signs (12 hours) Temp Pulse Resp BP Pulse Ox 07/29/19 00:32 72 18 94 L 07/28/19 23:15 98.0 F 07/28/19 20:00 95 07/28/19 19:39 97.6 F 07/28/19 18:47 71 25 H 96 07/28/19 18:32 112/79 Weight Weight 58.649 kg Most Recent Monitor Data Heart Rate from ECG 67 NIBP 99/70 NIBP BP-Mean 79 Respiration from ECG 18 SpO2 98 I&O: 07/27/19 07/28/19 07/29/19 06:59 06:59 06:59 Intake Total 970 1430 810 Output Total 1950 5375 900 Balance -980 -445 -90 Result Diagrams: 07/29/19 04:10 07/29/19 04:10 EKG Reviewed by me: Yes (paced) Phys Exam - Physical Examination Constitutional: NAD HEENT: moist MMs, sclera anicteric Neck: supple, full ROM Respiratory: no wheezing, no rales Cardiovascular: RRR, no significant murmur Gastrointestinal: soft, positive bowel sounds slightly ttp mid-epigastric region Musculoskeletal: no edema, pulses present Neurological: non-focal, moves all 4 limbs Psychiatric: normal affect, A&O x 3 Skin: no rash, normal turgor Dx/Plan (1) Transaminitis Code(s): R74.0 - NONSPEC ELEV OF LEVELS OF TRANSAMNS & LACTIC ACID DEHYDRGNSE Status: Acute (2) HFrEF (heart failure with reduced ejection fraction) Code(s): I50.20 - UNSPECIFIED SYSTOLIC (CONGESTIVE) HEART FAILURE Status: Chronic (3) Polysubstance abuse Code(s): F19.10 - OTHER PSYCHOACTIVE SUBSTANCE ABUSE, UNCOMPLICATED Status: Chronic (4) Hyponatremia Code(s): E87.1 - HYPO-OSMOLALITY AND HYPONATREMIA Status: Acute (5) Elevated troponin Code(s): R79.89 - OTHER SPECIFIED ABNORMAL FINDINGS OF BLOOD CHEMISTRY Status : Acute (6) Hypokalemia Code(s): E87.6 - HYPOKALEMIA Status: Acute (7) Abdominal pain Code(s): R10.9 - UNSPECIFIED ABDOMINAL PAIN Status: Acute - Plan Plan: Patient is a 54F with PMHx of HFrEF, COPD admitted for: #Epigastric pain, transaminitis. - RUQ US: gallbladder wall thickening, pericholecystic fluid, + collazo sign; no evidence of gallstones; suggests HIDA scan to look for acalculous cholecystitis - HIDA scan: gallbladder dyskinesia EF 9% - GI consulted, Dr. Phillip; recommended continued PPI. - Gen surg consulted, Dr. Almanza; patient not surgical candidate - Transaminitis likely 2/2 to congestive hepatopathy. #HFrEF, nonischemic cardiomyopathy. Acute exacerbation. - On Milrinone gtt, received PICC line 3/2, continued diuresis - per Dr. Crowley, HF clinic, increase daily carvedilol to 6.25mg BID, continue home spironolactone 12.5mg qd, continue digoxin 0.25mg qd - per Dr. Crowley's note patient currently waiting for transfer. Was denied by [facility] and [facility] in [place] for LVAD yesterday. Waiting on [facility] for possible transfer. - patient's prognosis is poor without the LVAD procedure - monitor I/Os - daily weights #Aflutter, resolved -Dr. Ramírez, EP, consulted -non-invasive EP study converted her to sinus rhythm, patient continues to be paced in sinus this am #Hypokalemia - potassium 3.5 this am - per Dr. Crowley continue 40meq K-Dur TID - will continue to monitor #Hyponatremia - sodium 130 this am, stable - will continue to monitor #Elevated troponin: - at baseline - chronic leak from profound HFrEF #Elevated BNP, near baseline - recent echo showed no change - strict I/O #Substance abuse - States she quit illicit drugs in 2014. Still uses MJ occasionally. Still smokes 1ppd cigarettes. -UDS+benzos, cannabis PPX: Th Lovenox, Protonix Diet: HH Dispo: Stable, inpatient. Waiting on possible transfer to [facility] for LVAD , will continue to follow. Code: Full
--- NOTE | 2019-07-29 07:30 | PRG ---
DATE OF SERVICE: 07/28/2019 ADDENDUM: This as an addendum to the note of Dr. Annie Snyder. I have discussed the case with Dr. Annie Snyder and agree with her assessment and plan on her daily note. Ms. Watters is a 54-year-old white female with significantly reduced ejection fraction of 10%, currently on a milrinone drip, managed by Dr. Crowley of the heart failure service. We are awaiting transfer for the patient to go to [place] for left ventricular assist device. We will continue to follow with Cardiology. Job ID: [id number]
[2019-07-29] MEDS ORDERED: Potassium Chloride 20 MEQ TAB PO SCH ×2 (08:00)
[2019-07-29] MEDS ORDERED: Magnesium 2 GM/50 ML 2 GM in Premix Bag 1 BAG IVPB SCH (08:00)
--- NOTE | 2019-07-29 08:00 | PRG ---
DATE OF SERVICE: 07/29/2019 SUBJECTIVE: Dyspnea improved. She is able to speak in complete sentences. No chest discomfort, palpitations, or syncope. OBJECTIVE: GENERAL: Well groomed, no apparent distress. Alert and oriented x4. VITAL SIGNS: Temperature 98.1, pulse 78, respiratory rate 12, and blood pressure 110/73. SKIN: No lesions. NECK: Jugular venous distention to the angle of the jaw. CARDIOVASCULAR: Regular rate and rhythm. No murmurs, gallops, or rubs. LUNGS: Bibasilar crackles. EXTREMITIES: 1+ edema. IMAGING DATA: Telemetry sinus rhythm with biventricular pacing. LABORATORY: WBC 7.6, hemoglobin 13.6, and platelets 139. Sodium 130, potassium 3.5, BUN 34, and creatinine 1.32. IMPRESSION AND PLAN: 1. Atypical atrial flutter, successfully pace terminated on Lovenox and amiodarone. 2. Paroxysmal atrial fibrillation, seen after paced termination of her atrial flutter, which was brief and self-limited. 3. Ventricular tachycardia. She received ICD shocks in February and March of 2019. No ventricular tachycardia this admission. 4. Acute on chronic congestive heart failure, improving on intravenous milrinone. Recommend continue amiodarone 200 mg b.i.d. continue Lovenox 1 mg/kg q.12 hours. Job ID: [id number]
[2019-07-29] MEDS ORDERED: Potassium Phosphate 15 MMOL in Sodium Chloride 0.9% 250 ML 250 ML IV PRN (08:01)
[2019-07-29] MEDS ORDERED: Potassium Chloride 40 MEQ in Sodium Chloride 0.9% 250 ML 250 ML IVPB PRN (08:01)
[2019-07-29] MEDS ORDERED: PHOS-NAK 1 PKT PACK PO PRN ×2 (08:01)
[2019-07-29] MEDS ORDERED: Potassium Phosphate 12 MMOL in Sodium Chloride 0.9% 250 ML 250 ML IV PRN (08:01)
[2019-07-29] MEDS ORDERED: Potassium Chloride 40 MEQ in Premix Bag 1 BAG IVPB PRN (08:01)
[2019-07-29] MEDS ORDERED: Potassium Phosphate 9 MMOL in Sodium Chloride 0.9% 100 ML IVPB PRN (08:01)
[2019-07-29] MEDS ORDERED: Potassium Chloride 20 MEQ TAB PO PRN (08:01)
[2019-07-29] MEDS ORDERED: CCU ELECTROLYTE REPLACEMENT PROTOCOL FS PRN (08:01)
[2019-07-29] MEDS ORDERED: Magnesium 2 GM/50 ML 2 GM in Premix Bag 1 BAG IVPB PRN (08:01)
[2019-07-29] MEDS ORDERED: Magnesium Oxide 400 MG TAB PO PRN ×2 (08:01)
--- NOTE | 2019-07-29 08:35 | PRG ---
DATE OF SERVICE: 07/29/2019 [facility]. HISTORY OF PRESENT ILLNESS: Ms. Watters had a go through process to improve. At first, she was still short of breath and expericine persistent right shoulder, right chest pressure pain. Milrinone was first titrated up to a 0.425 mcg/kg/minute. That was insufficient, eventually had to titrate up to 0.5 mcg/kg/minute. At that point , she felt better. Her chest pressure was relieved. Her right shoulder pain was gone. Furthermore at that dosage, she had more effective diuresis. The sodium is actually coming back up and bilirubin is coming back down. Since at that dose, she has felt more comfortable, is able to walk around and able to eat some. REVIEW OF SYSTEMS: GENERAL: She has had more energy today. There is no fever or chills. HEENT: There is no change in vision, hearing, or swallowing. PULMONARY: Please see HPI. CARDIOVASCULAR: Please see HPI. GI: Please see HPI. : She is able to urinate just fine. INTEGUMENT: There is no new skin breakdown. NEUROLOGIC: There are no focal deficits. PSYCH: She is in better spirits today. She is not depressed and she wants to go to a center that can make definitive action. MEDICATIONS: Her current cardiac medications include: 1. Amiodarone 200 mg twice a day. 2. Enoxaparin 60 mg twice a day. 3. Carvedilol 6.25 mg twice a day. 4. Digoxin 0.125 mg daily. 5. Milrinone 0.5 mcg/kg/minute IV GTT. 6. Lasix 60 mg IV b.i.d. 7. Spironolactone at 12.5 mg daily. 8. K-Dur at 40 mEq twice a day. PHYSICAL EXAMINATION: Telemetry was reviewed. She has A sensed V paced most of the time. Consequently, she is likely in sinus rhythm. She has occasional PVC. There is no more concerning arrhythmia. VITAL SIGNS: Her current vitals are heart rate of 79, blood pressure 107/72. GENERAL: She is alert and conversational. Better color in her face to suggest it is better perfused. She is more relaxed, more energetic this morning. HEENT: Show EOMI. Oropharynx benign. Moist mucosa without erythema, no exudate. NECK: Her JVP is still elevated at least 14 cm right at the earlobe, it is slightly lower than yesterday. LUNGS: She has better air movement today, but still some slight crackles at the right base, so this is improved from yesterday. CARDIAC: Regular rate and rhythm. She has a 3/6 holosystolic murmur at apex with radiation to the left axilla. Today, her S3 gallop is more clearly heard. She also has a right ventricular heave. ABDOMEN: Soft, nontender. Positive bowel sounds. EXTREMITIES: Lower extremities, she has palpable pulses and minimal edema. LABORATORY VALUES: Sodium 130, this is increased from 129. Potassium 3.5, this is decreased from 4.6. Her BUN is 34, this is decreased from 37. Her creatinine is 1.32, this is decreased from 1.51. Her total bilirubin is 2.0, it is decreased from 2.5. These values suggest that she has better cardiac output, more effective diuresis today than yesterday. ASSESSMENT: A 54-year-old female resides in [place] Heart Association stage D and [place] Heart Association class 3B heart failure with reduced ejection fraction due to nonischemic cardiomyopathy. She has both systolic and severe diastolic dysfunction. She has proven to require Milrinone at 0.5 mcg/kg/ minute to provide enough cardiac output. She remains volume overloaded. She is also becoming alkalotic with bicarb up to 34, so this also needs to be corrected and her potassium electrolyte also needs to be more aggressively corrected. Her best chance of increasing survival and quality of life is transfer to a center who can do definitive therapy such as left ventricular assist device. RECOMMENDATIONS: 1. Continue K-Dur at 40 mEq q.8 hours. Please give another potassium 40 mEq now. 2. Please add acetazolamide 250 mg daily. 3. Continue Lasix 60 mg IV b.i.d. 4. Please give magnesium 2 g IV one dose now. [facility] will accept her Medicaid insurance for LVAD. I will continue to contact [facility] Dr. See Villanueva to arrange for transfer. It has been a pleasure taking care of Ms. Watters. If you have any questions, please give me a call. Job ID: [id number] [facility]
[2019-07-29] MEDS ORDERED: Furosemide 40 MG/4 ML VIAL SLOW IVP SCH (09:00)
[2019-07-29] MEDS ORDERED: AcetaZOLAMIDE 250 MG TAB PO SCH (09:00)
[2019-07-29] MEDS: Digoxin 0.125 MG TAB PO SCH (09:39)
[2019-07-29] MEDS: Amiodarone 200 MG TAB PO SCH ×2 (09:40→20:20)
[2019-07-29] MEDS: Magnesium Oxide 400 MG TAB PO SCH ×3 (09:40→20:22)
[2019-07-29] MEDS: Enoxaparin Sodium 60 MG/0.6 ML SYRINGE SC SCH ×2 (09:45→20:20)
[2019-07-29] MEDS: Carvedilol 6.25 MG TAB PO SCH ×2 (09:45→16:45)
[2019-07-29] MEDS: Spironolactone 25 MG TAB PO SCH (09:45)
[2019-07-29] MEDS: Bupropion 150 MG SR TAB PO SCH ×2 (09:46→20:21)
[2019-07-29] MEDS: Furosemide 100 MG/10 ML VIAL SLOW IVP SCH ×3 (09:46→20:37)
[2019-07-29 09:47] VITALS: BP 112/79
[2019-07-29] MEDS: Ondansetron ODT 4 MG TAB PO PRN (11:01)
--- NOTE | 2019-07-29 11:25 | PRG ---
DATE OF SERVICE: 07/29/2019 Ms. Watters is sitting quietly in bed, in no distress. We discovered that she has been accepted for transfer to [facility] in [place] for left ventricular assist device. Job ID: [id number]
[2019-07-29] MEDS: Potassium Chloride 40 MEQ in Premix Bag 1 BAG IVPB SCH ×4 (12:05→20:38)
[2019-07-29 19:20] VITALS: TEMP 98.4
[2019-07-29] MEDS ORDERED: DOBUTamine 500 mg/250 ml 500 MG in Premix Bag 1 BAG IVPB SCH ×2 (19:30→19:45)
[2019-07-29] MEDS: Famotidine 20 MG TAB PO SCH (20:21)
--- NOTE | 2019-07-30 01:52 | DIS ---
DATE OF ADMISSION: 07/23/2019 DATE OF DISCHARGE: 07/29/2019 ADMITTING RESIDENT: Hao Berrios DO ADMITTING ATTENDING: Uzair Martinez MD DISCHARGE RESIDENT: Annie Snyder MD DISCHARGE ATTENDING: Reji Roberson MD CONSULTATIONS: 1. Cardiology (Dr. Lindsay). 2. Heart Failure Clinic (Dr. Crowley). 3. Electrophysiology (Dr. Polo). 4. Gastroenterology (Dr. Phillip). 5. General Surgery (Dr. Almanza). 6. Pulmonology (Dr. Ceabllos). 7. Cardiac rehab. 8. Dietitian. 9. Case Management. PROCEDURES: 1. Noninvasive electrophysiology, cardiac conversion. 2. PICC line insertion on 07/28/2019. IMAGIN. Chest x-ray 07/23: Cardiomegaly. 2. On 07/24, abdominal ultrasound, gallbladder wall thickening, pericholecystic fluid and positive sonographic Taylor sign without evidence for gallstones. 3. On 07/24/2019, HIDA scan: Decreased gallbladder EF of 9% to suggest biliary dyskinesia. The common duct is not visualized throughout the exam, which can be against common duct obstruction, though the common duct was normal in caliber on recent gallbladder ultrasound. It can also be seen after a narcotic administration. 4. On 07/25/2019, abdomen pelvis CT. Mild free intraperitoneal fluid. Marked cardiomegaly. No evidence for right heart dysfunction. PRIMARY DIAGNOSES: 1. Transaminitis. 2. Epigastric pain. 3. Reduced ejection fraction Heart failure. 4. Nonischemic cardiomyopathy with acute exacerbation, atrial flutter. 5. Hypokalemia. 6. Hyponatremia. 7. Elevated troponin. 8. Elevated BNP. SECONDARY DIAGNOSIS: Substance abuse. DISCHARGE MEDICATIONS: 1. Wellbutrin SR 150 mg p.o. b.i.d. 2. Digoxin 0.125 mg p.o. daily. 3. 50 mg sertraline p.o. daily. 4. 12.5 mg spironolactone p.o. q.a.m. 5. 18 mcg Spiriva inhaled daily. 6. 150 mg acetazolamide p.o. daily. 7. 200 mg amiodarone p.o. b.i.d. 8. 6.25 mg carvedilol p.o. b.i.d. 9. 60 mg Lovenox subcu at 0900 and 2100. 10. 50 mg Lasix IV b.i.d. 11. DuoNebs p.r.n. 12. 400 mg magnesium oxide p.o. t.i.d. 13. Milrinone IV piggyback 0.5 mcg/kg per minute. 14. 4 mg Zofran p.o. q.6 hours p.r.n. 15. 40 mg Protonix p.o. daily. 16. 40 mg IV KCl t.i.d. 17. 50 mg sertraline p.o. daily. DISCONTINUED MEDICATIONS: 1. Ventolin nebs. 2. Pepcid. 3. 800 mg magnesium oxide p.r.n. 4. Zofran IV p.r.n. 5. Phos-Nak p.r.n. 6. P.o. potassium chloride p.r.n. 7. Atrovent q.6 hours. 8. Magnesium IV p.r.n. 9. Potassium phosphate IV. HISTORY OF PRESENT ILLNESS/HOSPITAL COURSE: The patient is a 54-year-old female with a past medical history of reduced ejection fraction heart failure, substance abuse, COPD, hypertension, hyperlipidemia, who presented to the ED with increasing dyspnea on exertion and shortness of breath, abdominal pain, and decreased appetite. She reported that the symptoms have been present since she was recently discharged from the hospital and she had been using her home inhalers without relief. She had not had any increasing edema, though she had some exertional chest discomfort that was unchanged from baseline. Lab work in the ED showed a BNP of 4055, which is mildly increased from baseline and troponin leak consistent with prior values. She was also found to have elevated transaminases in the context of right upper quadrant pain and was further worked up for cholecystitis versus congestive hepatopathy. Right upper quadrant ultrasound and HIDA scan imaging, see above. GI was consulted after the HIDA scan was performed and suggested the patient go on daily Protonix , as the pain seemed be more epigastric and due to ulcers and less likely cholecystitis in nature. The patient also received a general surgery consult during the hospitalization to further evaluate her gallbladder and her abdominal CT. At that time, the surgeon found her a poor surgical candidate, because of her severe reduced ejection fraction, heart failure and recommended optimization of her heart at this time. She also does have a history of severely reduced ejection heart failure and the elevated transaminases may also be due to hepatic congestion. Although , she did not appear fluid overloaded on admission with no JVD or hepatojugular reflex on exam. The transaminases continued to get worse. It appeared that her heart failure also continued to get worse throughout the hospitalization. Cardiology and Heart Failure Clinic were both consulted after it appeared that the patient had a run of Aflutter on the telemetry strand. The patient was started on IV milrinone drip and received a PICC line due to anticipation that this would be a prolonged course of IV milrinone. The milrinone was fully titrated up to final discharge dose of 0.5 mcg/kg/minute. Dr. Crowley from Heart Failure Clinic also increased her daily carvedilol to 6.25 mg b.i.d., continued her home spironolactone and continued her digoxin as well. Dr. Ramírez from electrophysiology was consulted for her AFlutter and performed a noninvasive EP study to convert her back into sinus rhythm during which the conversion was successful. The rest of the hospitalization she remained paced. She did have hypokalemia and hyponatremia that was also managed with electrolyte replacement and monitoring throughout the hospitalization. It should be noted that on her last echocardiogram on 07/14/2019, she was found to have an EF of 10% to 15% with a left ventricular size that was severely increased, overall left ventricular function severely depressed. She was also found to have moderately enlarged right ventricle cavity, moderate mitral regurgitation, [id number] tricuspid regurgitation, and moderate pulmonic regurgitation. Dr. Crowley from the Heart Failure Clinic recommended that the patient be transferred to a facility that are performing LVAD procedure to help prolong her life span as without the LVAD procedure, he predicted her life span to be approximately 6 months. Due to the patient's insurance, the patient was turned down by both [facility] and [facility] in [place]. However, the patient was accepted by [facility] in [place] for a transfer and that process was started and completed on 07/29/2019 with patient achieving a bed on that day. The patient is currently not qualified for a heart transplant evaluation due to her smoking history, though it is believed that the LVAD device will provide her with a bridge for her to have time to stop smoking and show her compliance with medications, so that hopefully sometime in the future, she will be considered heart transplant at that time. On the day of discharge for transfer to [facility] in [place], all of her cardiovascular medications that she has been on during this hospitalization have been continued as well as IV Lasix and some other p.r.n. medications. Staffing has been instructed to continue the patient on IV milrinone drip and continue the current dosing that she has for further support during the transfer and at [facility]. The entire process has been discussed continuously with the patient and her daughter. The patient was agreeable to plan of care of being transferred to [facility] for the LVAD procedure and for further optimization of her heart at this time. The patient was evaluated on the day of discharge and found to be in a guarded condition, but agreeable to the transfer of her care to [facility]. DISPOSITION: Guarded. DISCHARGE INSTRUCTIONS: 1. Location: Transferred to [facility] in [place]. 2. Diet: Heart healthy. 3. Activity: Cardiopulmonary limitations. 4. Followup: Follow up with Dr. Lindsay in 2-3 weeks, with her primary care provider in [address] Ayala in [place] after she gets home from the hospital. 5. It should be noted that the patient will need PICC line care. Job ID: [id number] [facility]
== END 2019-07-29 20:40 | disposition short-term general hospital (02) | DRG 292 ==
LOC: ERS 11:08 → ERHOLD 16:27 → OBSVTOIN 16:27 → 2SW 16:40 → 2NO 07-25 16:57 → IMCU/EMU 07-26 15:16
PROVIDERS: ADMIT Family Medicine; ATTEND Family Medicine
PROC: 4B02XTZ Measurement of Cardiac Defibrillator, External Approach (ICD-10-PCS; principal; 2019-07-25)
PROC: 02HV33Z Insertion of Infusion Device into Superior Vena Cava, Percutaneous Approach (ICD-10-PCS; 2019-07-28)
PROC: B548ZZA Ultrasonography of Superior Vena Cava, Guidance (ICD-10-PCS; 2019-07-28)
DX: I50.23 Acute on chronic systolic (congestive) heart failure (principal); E87.1 Hypo-osmolality and hyponatremia; I48.4 Atypical atrial flutter; N17.9 Acute kidney failure, unspecified; I42.0 Dilated cardiomyopathy; E87.3 Alkalosis; E78.5 Hyperlipidemia, unspecified; J44.9 Chronic obstructive pulmonary disease, unspecified; F12.10 Cannabis abuse, uncomplicated; I08.1 Rheumatic disorders of both mitral and tricuspid valves; K76.1 Chronic passive congestion of liver; F19.10 Other psychoactive substance abuse, uncomplicated; I10 Essential (primary) hypertension; F17.210 Nicotine dependence, cigarettes, uncomplicated; I48.0 Paroxysmal atrial fibrillation; E87.6 Hypokalemia; Z79.899 Other long term (current) drug therapy; Z79.51 Long term (current) use of inhaled steroids; Z79.52 Long term (current) use of systemic steroids; Z95.810 Presence of automatic (implantable) cardiac defibrillator
CPT/HCPCS: 36415; 36569; 71045; 74177; 76705; 78227; 80053; 80306; 82553; 83690; 83735; 83880; 83930; 84100; 84484; 85025; 86705; 86706; 86708; 86709; 86780; 87338; 87340; 87389; 87521; 93005; 93798; 94640; A9537; C1751; J0282; J1250; J1644; J1650; J1940; J2260; J2270; J3475; J3480; J3490; J7050; J7070; J7620; P9047; Q0162; Q9967